=== PATIENT | female | born 1960 | race Caucasian/White ===

== ENCOUNTER → 2018-03-25 | Outpatient (CLI) | payer OTHER ==
[2018-03-25 13:12] LABS: HEMOGLOBIN A1C 9.8 % (4.5-5.6)
[2018-03-25 13:59] LABS: ALBUMIN 3.5 gm/dl (3.4-5.0); ALKALINE PHOSPHATASE 134 U/L (45-117); ALT/SGPT 46 U/L (12-78); AST/SGOT 53 U/L (15-37); BLOOD UREA NITROGEN 7 mg/dl (7-18); CALCIUM 9.1 mg/dl (8.5-10.1); CARBON DIOXIDE 29 mmol/L (21-32); CHOLESTEROL 140 mg/dl (0-200); CREATININE 0.59 mg/dl (0.60-1.20); GLUCOSE 174 mg/dl (70-99); SODIUM 137 mmol/L (136-145)
[2018-03-25 14:01] LABS: LDL CHOLESTEROL CALCULATED 67 mg/dl
== END | disposition home or self-care (01) ==
LOC: C.LABMFLN 09:07
PROVIDERS: ATTEND Family Medicine
DX: E11.40 Type 2 diabetes mellitus with diabetic neuropathy, unspecified (principal)

== ENCOUNTER 2019-07-22 21:31 | Inpatient (IN) ==
[2019-07-22] MEDS ORDERED: SODIUM CHLORIDE 0.9% 250 ML IV PRN (22:18)
[2019-07-22 22:30] LABS: Hematocrit (blood only) 16.5 % (37-47); Hemoglobin 4.3 g/dL (12.0-16.0); Mean Corpuscular Hgb Conc 26.1 g/dL (32-36); Mean Corpuscular Volume 65.2 fL (80-100); Platelet Count 324 K/uL (130-400); Red Blood Count 2.53 M/uL (4.2-5.4); White Blood Count 6.56 K/uL (4.8-10.8)
[2019-07-22 22:45] LABS: Albumin Level 3.6 gm/dl (3.4-5.0); BUN Creatinine Ratio 15.6 (10-20); Creatinine Clr Calc Pharmacy 101.8 ml/min; Est GFR (African American) 109.4; Est GFR (Non-African American) 94.4; Potassium 3.6 mmol/L (3.5-5.1)
[2019-07-22 22:46] LABS: Albumin Globulin Ratio 0.9 (0.9-2); Bilirubin,Total 1.1 mg/dl (0.2-1); Globulin 4.2 gm/dl (2.5-4.0); Total Protein 7.8 gm/dl (6.4-8.2)
[2019-07-22 22:51] LABS: Basophils # (auto) 0.03 K/uL (0-0.2); Basophils % (auto) 0.5 %; Eosinophils # (auto) 0.09 K/uL (0-0.5); Eosinophils % (auto) 1.4 %; Hypochromasia Present; Immature Granulocytes # (auto) 0.02 K/uL (0.00-0.02); Immature Granulocytes % (auto) 0.3 %; Lymphocytes # (auto) 1.23 K/uL (1.2-3.4); Lymphocytes % (auto) 18.8 %; Microcytosis Present; Monocytes # (auto) 0.52 K/uL (0.11-0.59); Monocytes % (auto) 7.9 %; Neutrophils # (auto) 4.67 K/uL (1.4-6.5); Neutrophils % (auto) 71.1 %; Ovalocytes 1+
--- NOTE | 2019-07-22 23:05 | Emergency Department Note ---
Entered by Danielle Hopkins acting as a scribe for Harjinder Baumann DO History of Present Illness General Chief complaint: Abnormal Labs/Diagnostic Testing Stated complaint: ANEMIC,ABNORMAL LABS Time Seen by Provider: 07/22/19 21:52 Source: patient History of Present Illness Onset (ago): hour(s) less than 1 Location: head (Abnormal lab work) Pain Consistency: + other (Episode) Maximum Pain Intensity: 0 Quality: + other (Abnormal lab work) Associated symptoms: + other (Fatigue, Irritably) Treatments prior to arrival: none The patient is a 59 year old female presenting to the Emergency Department complaining of an episode of abnormal lab work starting less than 1 hour ago. The patient reports that she had blood work done earlier today at [facility]. She explains that she was called and told that her blood work was abnormal and that she needed to come to the hospital. She states that her hemoglobin was 4.1. She adds that she has no past medical history of anemia. The patient reports that she has been feeling fatigued and irritable for the past month. She states that her blood pressure has been higher than normal. She explains that she has hemorrhoids that sometimes bleed. She notes that she recently had cataract surgery. 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 Medications Home Medications Medication Instructions Recorded Confirmed Type aspirin 81 mg PO QAM 05/07/19 07/22/19 History alprazolam 0.25 mg tablet 0.25 mg PO DAILY PRN #30 tab 07/22/19 07/22/19 Rx atorvastatin 10 mg tablet 10 mg PO QPM #90 tab 07/22/19 07/22/19 Rx cholecalciferol (vitamin D3) 1,000 unit PO DAILY 07/22/19 07/22/19 History [Vitamin D3] inulin 2 gram chewable tablet 2 g PO BID #180 tab 07/22/19 07/22/19 Rx metformin 1,000 mg tablet 1,000 mg PO BID #180 tab 07/22/19 07/22/19 Rx vitamin B complex tablet 1 tab PO QAM #90 tab 07/22/19 07/22/19 Rx zinc 50 mg tablet 50 mg PO QAM #90 tab 07/22/19 07/22/19 Rx Allergies Allergy/AdvReac Type Severity Reaction Status Date / Time cortisone Allergy Intermediate CORTISONE Verified 07/22/19 22:39 INJECTION ONLY - HIVES fentanyl Allergy Intermediate HIVES Verified 07/22/19 22:39 midazolam Allergy Intermediate HIVES Verified 07/22/19 22:40 propofol Allergy Intermediate HIVES Verified 07/22/19 22:40 prednisone Allergy Verified 07/22/19 09:49 Past Med/Surg History Medical History Diabetes mellitus, type 2 NIDDM Hyperlipidemia Surgical History History of anesthesia reaction ALLERGY TO PROPOFOL, VERSED, FENTANYL - HIVES, SLOW TO WAKE W/ COLONOSCOPIES ([facility]) (PT STATES BENADRYL GIVEN PRIOR TO [place]ITRECTOMY [place] [facility] [place] History of cataract surgery LEFT History of colonoscopy History of eye surgery RT RETINA REPAIR History of repair of rotator cuff RT History of toe surgery LT 2ND History of tonsillectomy and adenoidectomy History of tooth extraction History of vitrectomy JUNE 2018 [place] [facility] [place] Pt received Benadryl with propofol during the case without having hives Family History Aunt Family history of diabetes mellitus Grandfather (Maternal) Family history of diabetes mellitus Social History Preferred Language: Greek Communication Ability: Effective Card Player Required: No Beliefs That Will Affect Care: None Current Living Situation: Spouse Feels Safe at Home: Yes Smoking Status: Never smoker Second Hand Exposure: No ; Hx Alcohol Use: Yes Alcohol type: hard liquor Hx Substance Use: No Review of Systems See HPI for pertinent positives & negatives. and A total of 10 systems reviewed and were otherwise negative Physical Exam Vital Signs Vital Signs - 24 hr 07/22/19 21:34 07/22/19 21:58 Temperature 36.8 C Temperature Source Oral Sepsis Recent Fever Within 48 Hours No Sepsis New/Unexplained Change in Mental Status No Sepsis Action Taken by Nursing No Action Required Pulse Rate 124 H 102 H Pulse Rhythm Regular Respiratory Rate 16 Respiratory Effort / Characteristics Non-Labored Spontaneous Respiratory Depth Normal Blood Pressure 153/58 H Blood Pressure Mean 89 Pulse Oximetry 99 97 Oxygen Delivery Method Room Air Room Air CONSTITUTIONAL/VITAL SIGNS: Reviewed / noted above. GENERAL: Non-toxic in appearance. Pale. INTEGUMENTARY: Warm, dry, and [place]. HEAD: Normocephalic. EYES: without scleral icterus or trauma. ENT/OROPHARYNX: clear and moist. LYMPHADENOPATHY/NECK: Is supple without lymphadenopathy or meningismus. RESPIRATORY: Lungs clear and equal. CARDIOVASCULAR: Regular rate and rhythm. GI/ABDOMEN: Soft and nontender. No organomegaly or pulsatile mass. No rebound or guarding. Normal bowel sounds. RECTAL: Guaiac negative. EXTREMITIES: Warm and well perfused. BACK: No CVA tenderness. NEUROLOGICAL: Intact without focal deficits. PSYCHIATRIC: normal affect. MUSCULOSKELETAL: Normally developed with good muscle tone. Course 2158: The patient was evaluated in room B3B, and a complete history and physical examination were performed. 2217: I discussed the patient's case with Dr. Mauricio SANTIZO hospitalist. He will evaluate the patient for further management. 2246: I updated the patient at this time. Consultations Consultation #1: I discussed the patient's case with Dr. Mauricio SANTIZO hospitalist. He will evaluate the patient for further management. Time: 22:18 Medical Decision Making Differential Diagnosis Differential includes acute coronary syndrome, myocardial infarction, CVA, TIA, anemia, infection, pneumonia, UTI, pyelonephritis, poor nutrition, dehydration, electrolyte disturbance,hypoglycemia. Medical Records Attestation: I reviewed the patient's medical records. Home Medications Current Medication List: was personally reviewed by me Laboratory Data Attestation: I reviewed the patient's lab results. Result diagrams: 07/22/19 22:12 07/22/19 22:12 Lab Results 07/22/19 07/22/19 07/22/19 Range/Units 22:12 22:12 22:12 WBC 6.56 (4.8-10.8) K/uL RBC 2.53 L (4.2-5.4) M/uL Hgb 4.3 L* (12.0-16.0) g/dL Hct 16.5 L* (37-47) % MCV 65.2 L (80-100) fL MCH 17.0 L (25-34) pg MCHC 26.1 L (32-36) g/dL Plt Count 324 (130-400) K/uL Immature Gran % (Auto) 0.3 % Neut % (Auto) 71.1 % Lymph % (Auto) 18.8 % [place] % (Auto) 7.9 % Eos % (Auto) 1.4 % Baso % (Auto) 0.5 % Immature Gran # (Auto) 0.02 (0.00-0.02) K/uL Neut # (Auto) 4.67 (1.4-6.5) K/uL Lymph # (Auto) 1.23 (1.2-3.4) K/uL [place] # (Auto) 0.52 (0.11-0.59) K/uL Eos # (Auto) 0.09 (0-0.5) K/uL Baso # (Auto) 0.03 (0-0.2) K/uL Hypochromasia Present Microcytosis Present Ovalocytes 1+ PT Cancelled INR Cancelled APTT Cancelled PTT Ratio Cancelled Sodium 138 (136-145) mmol/L Potassium 3.6 (3.5-5.1) mmol/L Chloride 103 (98-107) mmol/L Carbon Dioxide 28 (21-32) mmol/L Anion Gap 7.0 (3-11) BUN 11 (7-18) mg/dl Creatinine 0.68 (0.6-1.2) mg/dl Est Cr Clr Drug Dosing 101.8 ml/min Est GFR ( Amer) 109.4 Est GFR (Non-Af Amer) 94.4 BUN/Creatinine Ratio 15.6 (10-20) Glucose 197 H (70-99) mg/dl Calcium 9.0 (8.5-10.1) mg/dl Total Bilirubin 1.1 H (0.2-1) mg/dl AST 21 (15-37) U/L ALT 25 (12-78) U/L Alkaline Phosphatase 85 (45-117) U/L Total Protein 7.8 (6.4-8.2) gm/dl Albumin 3.6 (3.4-5.0) gm/dl Globulin 4.2 H (2.5-4.0) gm/dl Albumin/Globulin Ratio 0.9 (0.9-2) Crossmatch 07/22/19 Range/Units 22:12 WBC (4.8-10.8) K/uL RBC (4.2-5.4) M/uL Hgb (12.0-16.0) g/dL Hct (37-47) % MCV (80-100) fL MCH (25-34) pg MCHC (32-36) g/dL Plt Count (130-400) K/uL Immature Gran % (Auto) % Neut % (Auto) % Lymph % (Auto) % [place] % (Auto) % Eos % (Auto) % Baso % (Auto) % Immature Gran # (Auto) (0.00-0.02) K/uL Neut # (Auto) (1.4-6.5) K/uL Lymph # (Auto) (1.2-3.4) K/uL [place] # (Auto) (0.11-0.59) K/uL Eos # (Auto) (0-0.5) K/uL Baso # (Auto) (0-0.2) K/uL Hypochromasia Microcytosis Ovalocytes PT INR APTT PTT Ratio Sodium (136-145) mmol/L Potassium (3.5-5.1) mmol/L Chloride (98-107) mmol/L Carbon Dioxide (21-32) mmol/L Anion Gap (3-11) BUN (7-18) mg/dl Creatinine (0.6-1.2) mg/dl Est Cr Clr Drug Dosing ml/min Est GFR ( Amer) Est GFR (Non-Af Amer) BUN/Creatinine Ratio (10-20) Glucose (70-99) mg/dl Calcium (8.5-10.1) mg/dl Total Bilirubin (0.2-1) mg/dl AST (15-37) U/L ALT (12-78) U/L Alkaline Phosphatase (45-117) U/L Total Protein (6.4-8.2) gm/dl Albumin (3.4-5.0) gm/dl Globulin (2.5-4.0) gm/dl Albumin/Globulin Ratio (0.9-2) Crossmatch See Detail ECG Data Attestation: I personally reviewed and interpreted this ECG as follows: Indication: other (Abnormal lab work, Fatigue) Rate (beats per minute): 114 Rhythm: sinus tachycardia Findings: no ST elevation and no ectopy Blood Pressure Blood Pressure Findings: Elevated blood pressure Blood Pressure Disposition: further management by hospitalist ABIOLA Day This is a 59-year-old female who presents to the ED with a chief complaint of extreme fatigue. The patient was seen at the PCPs office today and had outpatient blood work that revealed a hemoglobin of 4.6. Her metabolic panel was unremarkable and her troponin was negative. A CT angiogram of the chest did not show PE but did show a thyroid nodule as well as splenomegaly. The patient was typed and crossed. She will transfuse 1 unit of packed RBCs here. I spoke with the hospitalist, who will see the patient for further inpatient evaluation and care. Impression & Plan Anemia Critical Care Time Critical Care Time: Yes Total Critical Care Time: 32 I have personally spent 32 minutes of critical care time in the direct management of this patient. This includes bedside care, interpretation of diagnostic studies, and testing, discussion with consultants, patient, and family members, and other required patient management activities. This 32 minut es is in excess of all separately billable procedures. Discharge Plan Visit Data Chief Complaint: Abnormal Labs/Diagnostic Testing Stated Complaint: ANEMIC,ABNORMAL LABS ED Provider: Harjinder Baumann Discharge Problem: Anemia Patient Disposition: Being Evaluated by Hospitalist Forms Stand Alone Forms: My [facility] Prescriptions Prescriptions: No Action atorvastatin 10 mg tablet 10 mg PO QPM Qty: 90 RF: 3 Fiber Gummies 2 gram tablet,chewable 2 g PO BID Qty: 180 RF: 3 metformin 1,000 mg tablet 1,000 mg PO BID Qty: 180 RF: 3 vitamin B complex tablet 1 tab PO QAM Qty: 90 RF: 3 zinc 50 mg tablet 50 mg PO QAM Qty: 90 RF: 3 alprazolam 0.25 mg tablet 0.25 mg PO DAILY PRN (Reason: anxiety) Qty: 30 RF: 0 aspirin 81 mg Tablet,Delayed Release (Dr/Ec) 81 mg PO QAM RF: 0 cholecalciferol (vitamin D3) [Vitamin D3] 1,000 unit (25 mcg) Tablet 1,000 unit PO DAILY RF: 0 Referrals Referrals: Tirso Browning MD [Primary Care Provider] - Discharge Problem: Anemia Qualifiers: Anemia type: unspecified type Qualified Code(s): D64.9 - Anemia, unspecified The scribe's documentation has been prepared under my direction and personally reviewed by me in its entirety. I confirm that the note above accurately reflects all work, treatment, procedures, and medical decision making performed by me.
[2019-07-22 23:18] LABS: INR 1.1 (0.9-1.1); Partial Thromboplastin Ratio 0.7; Partial Thromboplastin Time < 20.0 Seconds (21.0-31.0); Prothrombin Time 11.2 Seconds (9.0-12.0)
--- NOTE | 2019-07-22 23:49 | History & Physical Report ---
Date of Service July 22, 2019 Assessment & Plan (1) Symptomatic anemia: Hemoglobin 4.6 at the outpatient lab, with repeat in the ED tonight 4.3. Significantly hypochromic microcytic indices. Peripheral smear. Hemoccult test stools. H&H every 6 hours, starting 1 hour after the third unit of PRBC's to be transfused tonight. Famotidine 20 mg IV every 12 hours. Patient does report significant bleeding from what she felt was hemorrhoids. NPO Consult gastroenterology. Consult hematology. Present on Admission?: Yes (2) Splenomegaly: Splenomegaly noted on CT of chest. Order CT of abdomen and pelvis to further assess. Consult hematology regarding anemia and splenomegaly. Present on Admission?: Yes (3) Right thyroid nodule: Noted on CT of chest. Order thyroid ultrasound. TSH, free T4 and free T3. Present on Admission?: Yes (4) Type 2 diabetes mellitus: Hold metformin while n.p.o. Placed on Accu-Cheks before meals and at bedtime with NovoLog coverage per scale. Present on Admission?: Yes (5) Hyperlipidemia: Hold atorvastatin while patient is n.p.o. Present on Admission?: Yes (6) Anxiety: Change alprazolam 0.25 mg p.o. daily PRN to Lorazepam 0.5 mg IV every 6 hours as needed Present on Admission?: Yes History of Present Illness Chief Complaint: The patient is referred to the emergency department by her PCP due to abnormal lab work performed in the outpatient setting earlier in the day today. Primary Care Provider: Tirso Browning MD The patient is a 59-year-old female with a past medical history including hyperlipidemia, anxiety, diabetes mellitus who had gone to her PCP due to concerns regarding worsening fatigue and progressive shortness of breath with less and less activity. Laboratory work that was ordered, returned results later in the day, with a low hemoglobin of 4.6, she was told to come to the emergency department for assessment. The patient reports that she periodically has issues with hemorrhoidal bleeding, and sometimes may persist for up to 2 weeks at a time. She denies any abdominal, pelvic or rectal pain. She does take aspirin 81 mg daily. Allergies Allergy/AdvReac Type Severity Reaction Status Date / Time cortisone Allergy Intermediate CORTISONE Verified 07/22/19 22:39 INJECTION ONLY - HIVES fentanyl Allergy Intermediate HIVES Verified 07/22/19 22:39 midazolam Allergy Intermediate HIVES Verified 07/22/19 22:40 propofol Allergy Intermediate HIVES Verified 07/22/19 22:40 prednisone Allergy Verified 07/22/19 09:49 Home Medications Home Medications Medication Instructions Recorded Confirmed Type aspirin 81 mg PO QAM 05/07/19 07/22/19 History alprazolam 0.25 mg tablet 0.25 mg PO DAILY PRN #30 tab 07/22/19 07/22/19 Rx atorvastatin 10 mg tablet 10 mg PO QPM #90 tab 07/22/19 07/22/19 Rx cholecalciferol (vitamin D3) 1,000 unit PO DAILY 07/22/19 07/22/19 History [Vitamin D3] inulin 2 gram chewable tablet 2 g PO BID #180 tab 07/22/19 07/22/19 Rx metformin 1,000 mg tablet 1,000 mg PO BID #180 tab 07/22/19 07/22/19 Rx vitamin B complex tablet 1 tab PO QAM #90 tab 07/22/19 07/22/19 Rx zinc 50 mg tablet 50 mg PO QAM #90 tab 07/22/19 07/22/19 Rx Past Med/Surg History Medical History Diabetes mellitus, type 2 NIDDM Hyperlipidemia Surgical History History of anesthesia reaction ALLERGY TO PROPOFOL, VERSED, FENTANYL - HIVES, SLOW TO [place]KE W/ COLONOSCOPIES ([facility]) (PT STATES [place]YL G[place] [facility] [place] History of cataract surgery LEFT History of colonoscopy History of eye surgery RT RETINA REPAIR History of repair of rotator cuff RT History of toe surgery LT 2ND History of tonsillectomy and adenoidectomy History of tooth extraction [place] [facility] [place] Pt received Benadryl with propofol during the case without having hives Family History Aunt Family history of diabetes mellitus Grandfather (Maternal) Family history of diabetes mellitus Social History Preferred Language: Omani Communication Ability: Effective Neurodiagnostic Tech Required: No Beliefs That Will Affect Care: None Current Living Situation: Spouse and Family Other Information That Helps Us Care for You: No Feels Safe at Home: Yes Safety Concerns: Feels Safe At This Time Smoking Status: Former smoker Tobacco Type: cigarettes ; Cigarettes Per Day: 20 ; Smoking End Date: ; Second Hand Exposure: No ; Hx Alcohol Use: Yes Alcohol type: hard liquor Hx Substance Use: No Review of Systems Review of Systems: The patient denies chest pain, cough, lower extremity swelling, sore throat, fevers, chills, sweats, weight change, nausea, vomiting, diarrhea, constipation, abdominal pain, pelvic pain, blood in urine or stool, dysuria, urinary frequency or urgency, headache, memory loss, loss of consciousness, rash, abnormal bruising or bleeding, imbalance, focal or generalized weakness, numbness or tingling in arms or legs, generalized arthralgias or myalgias, back or neck pain, or night sweats. The review of systems is otherwise negative other than for that already noted above, and at least 10 systems have been reviewed. Physical Exam Physical Exam: The patient is awake, alert and oriented 3, well developed and well nourished, normocephalic and atraumatic, lying in bed and in no acute distress. HEENT--PERRL, EOMI, mucous membranes and oropharynx dry. Neck--supple. No JVD. No bruits. Thyroid normal, trachea midline, no adenopathy. Heart--normal S1 and S2. Systolic murmurs. No rubs or gallops. Lungs--clear bilaterally, no respiratory distress, no accessory muscle use. Abdomen--normal bowel sounds and soft. Nontender. Nondistended. Extremities--no cyanosis or clubbing. No edema. There are good distal pulses b/l. Dermatologic--normal skin turgor, normal color, no abnormal lymph nodes, no rash. Neurologic--cranial nerves II through XII grossly intact. Rheumatologic--normal range of motion. Psychiatric--normal affect. Results & Data Vital Signs (Past 12 Hours) Vital Signs Temp Pulse Pulse Resp BP BP Pulse Ox 07/22/19 23:45 99.0 F 109 H 16 129/59 L 98 07/22/19 23:40 99.0 F 113 H 16 129/58 L 98 07/22/19 23:25 99.3 F 122 H 16 165/62 H 97 07/22/19 23:06 112 H 19 142/62 H 94 07/22/19 21:58 102 H 97 07/22/19 21:34 98.2 F 124 H 16 153/58 H 99 Laboratory Results Laboratory Results WBC 6.56 K/uL (4.8-10.8) 07/22/19 22:12 RBC 2.53 M/uL (4.2-5.4) L 07/22/19 22:12 Hgb 4.3 g/dL (12.0-16.0) L* 07/22/19 22:12 Hct 16.5 % (37-47) L* 07/22/19 22:12 MCV 65.2 fL (80-100) L 07/22/19 22:12 MCH 17.0 pg (25-34) L 07/22/19 22:12 MCHC 26.1 g/dL (32-36) L 07/22/19 22:12 Plt Count 324 K/uL (130-400) 07/22/19 22:12 Immature Gran % (Auto) 0.3 % 07/22/19 22:12 Neut % (Auto) 71.1 % 07/22/19 22:12 Lymph % (Auto) 18.8 % 07/22/19 22:12 [place] % (Auto) 7.9 % 07/22/19 22:12 Eos % (Auto) 1.4 % 07/22/19 22:12 Baso % (Auto) 0.5 % 07/22/19 22:12 Immature Gran # (Auto) 0.02 K/uL (0.00-0.02) 07/22/19 22:12 Neut # (Auto) 4.67 K/uL (1.4-6.5) 07/22/19 22:12 Lymph # (Auto) 1.23 K/uL (1.2-3.4) 07/22/19 22:12 [place] # (Auto) 0.52 K/uL (0.11-0.59) 07/22/19 22:12 Eos # (Auto) 0.09 K/uL (0-0.5) 07/22/19 22:12 Baso # (Auto) 0.03 K/uL (0-0.2) 07/22/19 22:12 Hypochromasia Present 07/22/19 22:12 Microcytosis Present 07/22/19 22:12 Ovalocytes 1+ 07/22/19 22:12 PT 11.2 Seconds (9.0-12.0) 07/22/19 22:57 INR 1.1 (0.9-1.1) 07/22/19 22:57 APTT < 20.0 Seconds (21.0-31.0) L 07/22/19 22:57 PTT Ratio 0.7 07/22/19 22:57 Sodium 138 mmol/L (136-145) 07/22/19 22:12 Potassium 3.6 mmol/L (3.5-5.1) 07/22/19 22:12 Chloride 103 mmol/L (98-107) 07/22/19 22:12 Carbon Dioxide 28 mmol/L (21-32) 07/22/19 22:12 Anion Gap 7.0 (3-11) 07/22/19 22:12 BUN 11 mg/dl (7-18) 07/22/19 22:12 Creatinine 0.68 mg/dl (0.6-1.2) 07/22/19 22:12 Est Cr Clr Drug Dosing 101.8 ml/min 07/22/19 22:12 Est GFR ( Amer) 109.4 07/22/19 22:12 Est GFR (Non-Af Amer) 94.4 07/22/19 22:12 BUN/Creatinine Ratio 15.6 (10-20) 07/22/19 22:12 Glucose 197 mg/dl (70-99) H 07/22/19 22:12 POC Glucose 201 (70-99) H 07/23/19 00:45 Calcium 9.0 mg/dl (8.5-10.1) 07/22/19 22:12 Total Bilirubin 1.1 mg/dl (0.2-1) H 07/22/19 22:12 AST 21 U/L (15-37) 07/22/19 22:12 ALT 25 U/L (12-78) 07/22/19 22:12 Alkaline Phosphatase 85 U/L (45-117) 07/22/19 22:12 Total Protein 7.8 gm/dl (6.4-8.2) 07/22/19 22:12 Albumin 3.6 gm/dl (3.4-5.0) 07/22/19 22:12 Globulin 4.2 gm/dl (2.5-4.0) H 07/22/19 22:12 Albumin/Globulin Ratio 0.9 (0.9-2) 07/22/19 22:12 Blood Type A Positive 07/22/19 22:12 Blood Type Recheck A Positive 07/22/19 11:32 Antibody Screen NEGATIVE 07/22/19 22:12 Crossmatch See Detail 07/22/19 22:12 Diagnostic Findings [place], [place] [phone] CT Scan Report Patient: ROLANDO COLLINS Date: 07/22/19 MR#: [id number]: [address] Acct ID:[id number]: Date: 1960[facility] Zip: [place] [address] Age: 59Location: CT Sex: F Room/Bed: Att Phy: Tirso Browning MDDiagnosis: OTHER FORMS OF DYSPNEA, ELEVATED D-DIMER Bárbara Phy: Tirso Browning MDService Date: 07/22/19 Fam Phy: Interpreting Phy: Carlos Eduardo Heart MD Admit Phy: Ordering Phy: Tirso Browning MD cc: ~ CT ANGIOGRAM OF THE CHEST CLINICAL HISTORY: Dyspnea and elevated D-dimer COMPARISON STUDY: 02/16/2010 TECHNIQUE: Following the IV administration of 106 mL of [id number]-320, CT angiogram of the thorax was performed from the thoracic inlet to the lung bases utilizing the pulmonary embolus protocol. Images are reviewed in the axial, sagittal, and coronal planes. IV contrast was administered without complication. MIP imaging was performed. A dose lowering technique was utilized adhering to the principles of ALARA. CT DOSE: 590.54 mGycm FINDINGS: There is a slowly enlarging 34 mm right lobe thyroid nodule with calcifications. This nodule measured 28 mm in 2009. There are mildly prominent right paratracheal lymph nodes which are not pathologically enlarged by size criteria. Subcarinal nodes are the upper limits of normal in size. There is no pathologic hilar or axillary lymphadenopathy There was no evidence of thoracic aortic dilatation. Pulmonary to opacification is slightly less than optimal. There are however no pulmonary artery filling defect identified to indicate acute pulmonary embolism. There is a trace right pleural effusion There is respiratory motion artifact. There are groundglass pulmonary opacities with a mosaic distribution. This suggests an element of air trapping. There are right basilar atelectatic changes. There is no lobar consolidation. The spleen appears enlarged but is only partially visualized IMPRESSION: 1. No evidence of acute pulmonary embolism 2. Mosaic attenuation of the lungs, likely secondary to air trapping 3. Slowly enlarging dominant 34 mm right lobe thyroid nodule 4. Splenomegaly Electronically signed by: Carlos Eduardo Heart M.D. 07/22/2019 4:23 PM Dictated: 07/22/19 1616 Transcribed: 07/22/19 1616 Code Status & VTE Plan Code Status Full code VTE Prophylaxis Plan VTE Prophylaxis will be ordered: Yes PG Care Time/CCT Total # of Minutes Spent Total Time Spent with Patient: Total time spent is greater than 50% in coordination of care (as documented) at patient's floor/unit and/or counseling patient:
[2019-07-23] MEDS ORDERED: SODIUM CHLORIDE 0.9% 250 ML IV PRN (00:55)
[2019-07-23] MEDS ORDERED: ONDANSETRON INJ 2 MG/ML 2 ML VIAL IV PRN (00:55)
[2019-07-23] MEDS ORDERED: ACETAMINOPHEN 1000 MG/100 ML IV IV PRN (00:55)
[2019-07-23] MEDS: FAMOTIDINE 20 MG in SYRINGE 3 ML IV SCH ×3 (01:16→21:30)
[2019-07-23] MEDS ORDERED: DEXTROSE 50% 50 ML SYRINGE IV PRN (01:23)
[2019-07-23] MEDS ORDERED: GLUCAGON FOR INJ 1 MG VIAL SQ PRN (01:23)
[2019-07-23] MEDS ORDERED: GLUCOSE 10 TABS/TUBE PO PRN (01:23)
[2019-07-23] MEDS ORDERED: GLUCOSE 40% GEL 15 GM TUBE PO PRN (01:23)
[2019-07-23] MEDS ORDERED: CARBOHYDRATES FOR HYPOGLYCEMIA PO PRN (01:23)
[2019-07-23] MEDS ORDERED: LORazepam 0.25 MG/0.5 ML VIAL IV PRN (04:18)
[2019-07-23] MEDS: INSULIN ASPART 100 UNITS/ML 3 ML PEN SC SCH ×4 (06:17→21:31)
--- NOTE | 2019-07-23 06:56 | Ultrasound Report ---
US thyroid CLINICAL HISTORY: Thyroid nodule abnormal CT scan COMPARISON STUDY: January 2010 FINDINGS: The right lobe measures 49 x 22 x 34 mm. There is 3.5 cm partially solid and cystic slightly hypoecho ic right lobe thyroid nodule which contains areas of calcification. If not previously biopsied, this nodule does meet biopsy criteria. The left lobe measures 41 x 10 x 12 mm. There are multiple left lung nodules measuring up to 6 mm in diameter. There is a 1 cm isthmus nodule. This demonstrates rim calcification. IMPRESSION: 1. Multinodular thyroid gland. 2. The dominant 3.5 cm right lobe thyroid nodule remains similar in size to the prior 2009 study. It has however developed areas of calcification. The nodule meets biopsy criteria [facility]. Electronically signed by: Carlos Eduardo Heart M.D. 07/23/2019 6:55 AM
--- NOTE | 2019-07-23 07:10 | CT Scan Report ---
CT OF THE ABDOMEN AND PELVIS WITHOUT CONTRAST CLINICAL HISTORY: Symptomatic anemia. COMPARISON STUDY: Right upper quadrant ultrasound April 15, 2014. TECHNIQUE: Axial images of the abdomen and pelvis were obtained without IV contrast. Images were revi ewed in the axial, sagittal, and coronal planes. Automated exposure control was utilized for the nora dy. A dose lowering technique was utilized adhering to the principles of ALARA. FINDINGS: Excreted contrast within the collecting systems, ureters and bladder is from recent contras t-enhanced chest CT. Mild cardiomegaly is noted. There is borderline splenomegaly. No hydronephrosis is present. Evaluation of the abdomen and pelvis is suboptimal on this unenhanced exam. Unenhanced im ages of the liver, adrenal glands and pancreas are normal. There is no biliary or pancreatic ductal d ilatation. No pneumatosis, free air or portal venous gas is present. The appendix is normal. There is colonic diverticulosis without evidence for acute diverticulitis. No ascites or lymphadenopathy is p resent. No retroperitoneal hematoma is noted. There is no hemoperitoneum. No suspicious osseous lesio ns are noted. Multilevel degenerative changes within the lumbar spine are present. IMPRESSION: 1. No acute process within the abdomen or pelvis on unenhanced exam. 2. Sigmoid diverticulosis without evidence for acute diverticulitis. Decreased sensitivity for detect ion mucosal lesions given CT technique. However, none identified. Electronically signed by: Nickolas Zapata M.D. 07/23/2019 7:09 AM
[2019-07-23 13:27] LABS: Hematocrit (blood only) 24.8 % (37-47); Hemoglobin 7.2 g/dL (12.0-16.0); Mean Corpuscular Hemoglobin 20.4 pg (25-34); Mean Corpuscular Volume 70.3 fL (80-100); Mean Platelet Volume 9.5 fL (7.4-10.4); Platelet Count 281 K/uL (130-400); RDW Coefficient of Variation 21.8 % (11.5-14.5); RDW Standard Deviation 56.4 fL (36.4-46.3); Red Blood Count 3.53 M/uL (4.2-5.4); White Blood Count 5.57 K/uL (4.8-10.8)
[2019-07-23 13:40] LABS: Albumin Globulin Ratio 0.8 (0.9-2); Albumin Level 3.7 gm/dl (3.4-5.0); BUN Creatinine Ratio 14.9 (10-20); Bilirubin,Total 1.8 mg/dl (0.2-1); Calcium 8.9 mg/dl (8.5-10.1); Creatinine Clr Calc Pharmacy 157.9 ml/min; Est GFR (African American) 122.7; Est GFR (Non-African American) 105.9; Globulin 4.8 gm/dl (2.5-4.0); Potassium 3.6 mmol/L (3.5-5.1); Total Protein 8.5 gm/dl (6.4-8.2)
[2019-07-23 13:49] LABS: Anisocytosis Present; Basophils # (auto) 0.02 K/uL (0-0.2); Basophils % (auto) 0.4 %; Eosinophils # (auto) 0.12 K/uL (0-0.5); Eosinophils % (auto) 2.2 %; Hypochromasia Present; Immature Granulocytes # (auto) 0.01 K/uL (0.00-0.02); Immature Granulocytes % (auto) 0.2 %; Lymphocytes # (auto) 1.27 K/uL (1.2-3.4); Lymphocytes % (auto) 22.8 %; Monocytes # (auto) 0.48 K/uL (0.11-0.59); Monocytes % (auto) 8.6 %; Neutrophils # (auto) 3.67 K/uL (1.4-6.5); Neutrophils % (auto) 65.8 %; Poikilocytosis Present; Polychromasia 1+
--- NOTE | 2019-07-23 14:14 | Hospitalist Progress Note ---
Date of Service July 23, 2019 Assessment & Plan (1) Symptomatic anemia: Hemoglobin 4.6 at the outpatient lab, with repeat in the ED tonight 4.3. Microcytic; likely iron deficiency. Patient does report significant bleeding from what she felt was hemorrhoids. - Peripheral smear showed hypochromasia. - Famotidine 20 mg IV every 12 hours. - GI consulted - Awaiting consult - Patient report she was seen by hematology - Plan for outpatient iron infusion, though no note yet. (2) Right thyroid nodule: Noted on CT of chest. Thyroid ultrasound showed stable 3.5 cm nodule. - TSH from 07/22/2019 was 0.010, FT4 was 1.15. - FT3 on 07/23 was 4.41. - Difficult to tell whether these values are being affected by her critical anemia or this may be contributing. Few present symptoms as far as I can tell. Will need repeat in 4 weeks and endocrinology follow up. (3) Type 2 diabetes mellitus: A1c was 8.0% in 03/2019. - Hold metformin while n.p.o. - Placed on Accu-Cheks before meals and at bedtime with NovoLog coverage per scale. (4) Hyperlipidemia: - Hold atorvastatin while patient is n.p.o. (5) Anxiety: - Change alprazolam 0.25 mg p.o. daily PRN to Lorazepam 0.5 mg IV every 6 hours as needed (6) DVT prophylaxis: SCDs given concern for bleeding Subjective Not feeling all that bad overall. Got her blood and overall feels improved. No melena or hematochezia. Review of Systems Review of Systems: All systems reviewed & are unremarkable except as noted in HPI & below Physical Exam Constitutional: WD/WN, vitals as above Eyes: EOM intact bilaterally; no conjunctival abnormality ENMT: external ear and nose normal, oropharynx normal Neck: trachea midline, no thyromegaly normal visual inspection Respiratory: normal respiratory effort, lungs clear to auscultation no re spiratory distress Cardiovascular: RRR, no murmur, no edema Gastrointestinal (Abdomen): Inspection/Auscultation: abdomen normal to inspection; abdomen not distended Musculoskeletal: no cyanosis or clubbing, extremities motor strength 5/5 Skin: no rashes, warm and dry Neurologic: moves all extremities and awake Psychiatric: Orientation: alert, oriented to person and cooperative Results & Data Vital Signs (Past 12 Hours) Vital Signs Temp Pulse Pulse Resp BP BP Pulse Ox 07/23/19 10:50 36.5 C 87 18 149/79 H 98 07/23/19 07:15 92 H 07/23/19 07:00 91 H 07/23/19 06:45 91 H 07/23/19 06:30 92 H 07/23/19 06:15 105 H 07/23/19 06:10 37.1 C 94 H 18 148/89 H 99 07/23/19 06:00 90 07/23/19 05:45 94 H 07/23/19 05:40 37.1 C 98 H 17 127/53 L 92 07/23/19 05:30 91 H 07/23/19 05:25 37.2 C 94 H 16 132/46 L 94 07/23/19 05:15 92 H 07/23/19 05:10 36.9 C 94 H 14 141/95 H 96 07/23/19 05:01 92 H 07/23/19 04:50 36.6 C 101 H 16 127/76 99 07/23/19 04:45 101 H 07/23/19 04:35 36.6 C 101 H 16 127/76 99 07/23/19 04:30 96 H 07/23/19 04:15 97 H 07/23/19 04:00 95 H 07/23/19 03:45 104 H 07/23/19 03:35 37.1 C 102 H 16 145/78 H 93 07/23/19 03:30 100 H 07/23/19 03:15 101 H 07/23/19 03:05 37.2 C 101 H 16 116/60 99 07/23/19 03:00 100 H 07/23/19 02:50 36.8 C 100 H 14 128/57 L 99 07/23/19 02:45 103 H 07/23/19 02:35 37.1 C 100 H 16 96/77 L 99 07/23/19 02:30 107 H 07/23/19 02:15 97 H PG Care Time/CCT Total # of Minutes Spent Total Time Spent with Patient: Total time spent is greater than 50% in coordination of care (as documented) at patient's floor/unit and/or counseling patient:
--- NOTE | 2019-07-23 15:06 | History & Physical Report ---
Date of Service July 23, 2019 History of Present Illness Chief Complaint: anemia Primary Care Provider: Tirso Browning MD for EGD Allergies Allergy/AdvReac Type Severity Reaction Status Date / Time cortisone Allergy Intermediate CORTISONE Verified 07/22/19 22:39 INJECTION ONLY - HIVES fentanyl Allergy Intermediate HIVES Verified 07/22/19 22:39 midazolam Allergy Intermediate HIVES Verified 07/22/19 22:40 propofol Allergy Intermediate HIVES Verified 07/22/19 22:40 prednisone Allergy Verified 07/22/19 09:49 Home Medications Home Medications Medication Instructions Recorded Confirmed Type aspirin 81 mg PO QAM 05/07/19 07/22/19 History alprazolam 0.25 mg tablet 0.25 mg PO DAILY PRN #30 tab 07/22/19 07/22/19 Rx atorvastatin 10 mg tablet 10 mg PO QPM #90 tab 07/22/19 07/22/19 Rx cholecalciferol (vitamin D3) 1,000 unit PO DAILY 07/22/19 07/22/19 History [Vitamin D3] inulin 2 gram chewable tablet 2 g PO BID #180 tab 07/22/19 07/22/19 Rx metformin 1,000 mg tablet 1,000 mg PO BID #180 tab 07/22/19 07/22/19 Rx vitamin B complex tablet 1 tab PO QAM #90 tab 07/22/19 07/22/19 Rx zinc 50 mg tablet 50 mg PO QAM #90 tab 07/22/19 07/22/19 Rx Past Med/Surg History Medical History Diabetes mellitus, type 2 NIDDM Hyperlipidemia Surgical History History of anesthesia reaction ALLERGY TO PROPOFOL, VERSED, FENTANYL - HIVES, SLOW TO WAKE W/ COLONOSCOPIES ([facility]) (PT STATES BENADRYL GIV[place] PRIOR [place] [facility] [place] History of cataract surgery LEFT History of colonoscopy History of eye surgery RT RETINA REPAIR History of repair of rotator cuff RT History of toe surgery LT 2ND History of tonsillectomy and adenoidectomy History of tooth extraction [place] of [place] [facility] [place] Pt received Benadryl with propofol during the case without having hives Family History Aunt Family history of diabetes mellitus Grandfather (Maternal) Family history of diabetes mellitus Social History Preferred Language: Setswana Communication Ability: Effective Corsetier Required: No Beliefs That Will Affect Care: None Current Living Situation: Spouse and Family Feels Safe at Home: Yes Smoking Status: Former smoker Tobacco Type: cigarettes ; Cigarettes Per Day: 20 ; Second Hand Exposure: No ; Hx Alcohol Use: Yes Alcohol type: hard liquor Hx Substance Use: No Physical Exam Constitutional: + obese Respiratory: normal respiratory effort Cardiovascular: Rate/Rhythm: regular rate and regular rhythm Gastrointestinal (Abdomen): Percussion/Palpation: abdomen soft Results & Data Vital Signs (Past 12 Hours) Vital Signs Temp Pulse Pulse Resp BP BP Pulse Ox 07/23/19 10:50 36.5 C 87 18 149/79 H 98 07/23/19 07:15 92 H 07/23/19 07:00 91 H 07/23/19 06:45 91 H 07/23/19 06:30 92 H 07/23/19 06:15 105 H 07/23/19 06:10 37.1 C 94 H 18 148/89 H 99 07/23/19 06:00 90 07/23/19 05:45 94 H 07/23/19 05:40 37.1 C 98 H 17 127/53 L 92 07/23/19 05:30 91 H 07/23/19 05:25 37.2 C 94 H 16 132/46 L 94 07/23/19 05:15 92 H 07/23/19 05:10 36.9 C 94 H 14 141/95 H 96 07/23/19 05:01 92 H 07/23/19 04:50 36.6 C 101 H 16 127/76 99 07/23/19 04:45 101 H 07/23/19 04:35 36.6 C 101 H 16 127/76 99 07/23/19 04:30 96 H 07/23/19 04:15 97 H 07/23/19 04:00 95 H 07/23/19 03:45 104 H 07/23/19 03:35 37.1 C 102 H 16 145/78 H 93 07/23/19 03:30 100 H 07/23/19 03:15 101 H Code Status & VTE Plan VTE Prophylaxis Plan VTE Prophylaxis will be ordered: Yes
--- NOTE | 2019-07-23 15:13 | Anesthesiology Consultation ---
Date of Service July 23, 2019 Assessment & Plan (1) Encounter for pre-operative examination: Chart Review Chart Review: Acceptable Risk for Surgery and Patient NOT seen in Pre Admission Testing Consults Requested none History Surgery Operation Date: 07/23/19 09:00 Proposed Procedures p Esophagogastroduodenoscopy Dr Reyna Orellana Height/Weight Height: 5 ft 10 in Weight: 100.4 kg Allergies Allergy/AdvReac Type Severity Reaction Status Date / Time cortisone Allergy Intermediate CORTISONE Verified 07/22/19 22:39 INJECTION ONLY - HIVES fentanyl Allergy Intermediate HIVES Verified 07/22/19 22:39 midazolam Allergy Intermediate HIVES Verified 07/22/19 22:40 propofol Allergy Intermediate HIVES Verified 07/22/19 22:40 prednisone Allergy Verified 07/22/19 09:49 Medications Home Medications Medication Instructions Recorded Confirmed Last Taken aspirin 81 mg PO QAM 05/07/19 07/22/19 06/09/19 alprazolam 0.25 mg tablet 0.25 mg PO DAILY PRN #30 tab 07/22/19 07/22/19 Unknown atorvastatin 10 mg tablet 10 mg PO QPM #90 tab 07/22/19 07/22/19 Unknown cholecalciferol (vitamin D3) 1,000 unit PO DAILY 07/22/19 07/22/19 Unknown [Vitamin D3] inulin 2 gram chewable tablet 2 g PO BID #180 tab 07/22/19 07/22/19 Unknown metformin 1,000 mg tablet 1,000 mg PO BID #180 tab 07/22/19 07/22/19 Unknown vitamin B complex tablet 1 tab PO QAM #90 tab 07/22/19 07/22/19 Unknown zinc 50 mg tablet 50 mg PO QAM #90 tab 07/22/19 07/22/19 Unknown Active Medications Generic Name Dose Route Start Last Admin Trade Name Freq PRN Reason Stop Dose Admin Famotidine 20 mg/ Syringe 5 mls @ 2.5 mls/min 07/23/19 02:00 07/23/19 08:06 IV 08/22/19 01:59 Not Given Q12 MALVIN Insulin Aspart 0 units 07/23/19 07:30 07/23/19 12:37 Novolog Flexpen SC 08/22/19 07:29 1 units ACHS MALVIN Administration Past Medical History Medical History Anemia Diabetes mellitus, type 2 NIDDM Hyperlipidemia Exercise / Class Metabolic Activity II 4-5 Yardwork/Stairs/Walk up hill Past Family History Family History Aunt Family history of diabetes mellitus Grandfather (Maternal) Family history of diabetes mellitus Past Surgical History Surgical History History of anesthesia reaction ALLERGY TO PROPOFOL, VERSED, FENTANYL - HIVES, SLOW TO WAKE W/ COLONOSCOPIES ([facility]) (PT [place]DRYL GIV[place] [facility] [place] History of cataract surgery LEFT History of colonoscopy History of eye surgery RT RETINA REPAIR History of repair of rotator cuff RT History of toe surgery LT 2ND History of tonsillectomy and adenoidectomy History of tooth extraction [place] [facility] [place] received Benadryl with propofol during the case without having hives Past Anesthesia History No Hx of Anesthesia Complications and No Family Hx of Anesthesia Complications History of PONV No Hx of PONV and No Hx of Motion Sickness Social History Smoking Status: Former smoker tobacco type: cigarettes Smoking cigarettes per day: 20 Smoking End Date: Hx Alcohol Use: Yes Alcohol type: hard liquor alcohol intake frequency: 0-2 drinks per day Alcohol Intake Frequency Comment: 2 shots 5 days/week Hx Substance Use: No substance use type: does not use Physical Exam Vital Signs Last Vital Signs Temp 36.5 C 07/23/19 10:50 Pulse 87 07/23/19 10:50 Resp 18 07/23/19 10:50 BP 149/79 H 07/23/19 10:50 Pulse Ox 98 07/23/19 10:50 Testing Laboratory Results 07/23/19 13:11 07/23/19 12:42 PT 11.2 Seconds (9.0-12.0) 07/22/19 22:57 INR 1.1 (0.9-1.1) 07/22/19 22:57 APTT < 20.0 Seconds (21.0-31.0) L 07/22/19 22:57 Blood Type A Positive 07/22/19 22:12 Antibody Screen NEGATIVE 07/22/19 22:12 07/23/19 07/23/19 11:41 05:44 POC Glucose 149 H 155 H
[2019-07-23] MEDS ORDERED: SODIUM CHLORIDE 0.9% 1000ML 1,000 ML IV SCH (15:15)
[2019-07-23] MEDS ORDERED: LIDOCAINE HCL 2% 2 ML VIAL/AMP(20MG/ML) INFIL ONE (15:31)
[2019-07-23] MEDS ORDERED: PROPOFOL IV EMULSION 10 MG/ML 20 ML VIAL IV ONE (15:31)
[2019-07-23] MEDS ORDERED: fentaNYL citrate 100 MCG/2 ML VIAL ONE (15:31)
[2019-07-23] MEDS ORDERED: DiphenhydrAMINE HCL 50 MG/ML VIAL ONE (15:31)
--- NOTE | 2019-07-23 15:51 | Oncology Consultation ---
Date of Consultation July 23, 2019 Assessment & Plan (1) Symptomatic anemia: Ms. You was admitted with a severe microcytic anemia. We will need to check iron indices, but that picture is most suggestive of iron deficiency from chronic GI losses. In particular, the insidious onset and relative modesty of her symptoms, given the severity of her anemia, suggests a chronic process. GI have been consulted and she is scheduled for an endoscopic workup today. She has had long-standing daily hemorrhoidal bleeding and that sometimes is enough to make patients iron deficient. Her CT revealed no evidence of abdominal masses or other findings suggestive of a mass or hematoma. We will follow up on the results of her endoscopies and her iron studies. If she is truly iron deficient, we can treat her with IV iron as an outpatient. Her total bilirubin has bumped today, from normal to 1.8. This is sometimes seen after transfusion, particularly when the blood that is given is a little older. These transient elevations should resolve in 24 hours, so we should check another level tomorrow. She had no signs or symptoms of an acute hemolytic transfusion reaction and delayed hemolytic transfusion reactions don't generally happen within 24 hours. If her bilirubin does not fall, we should sent off a transfusion reaction workup. Present on Admission?: Yes History of Present Illness Reason for Consultation: Severe microcytic anemia Attending Physician: Alon Castro MD History of Present Illness Ms. You is a generally healthy 59 year old woman with a history of type 2 diabetes. She saw her PCP yesterday complaining of increasing fatigue and dyspnea on exertion. He did a workup including a CBC that revealed a hemoglobin of 4.6 with an MCV of 67. She was directed to the ER, where her hemoglobin remained low at 4.3. She's received 3 units of PRBCs since admission and seen an appropriate response, with her hemoglobin now 7.2. She has a long-standing history of hemorrhoidal bleeding. She will often have multiple bowel movements in the morning and after straining for a while, will start to see red blood on her toilet tissue and her stool. This has been happening "for years" by her estimation. She denies any melena, hematemesis, epistaxis, or bleeding else where. She went through menopause 10 years ago. She never had heavy periods and has no children. She has never had abdominal surgery. She denies any known history of IBD, celiac disease, or other absorptive disorders. She is up to date on screening colonoscopies. She denies any fevers, sweats, or infectious symptoms. Allergies Allergy/AdvReac Type Severity Reaction Status Date / Time cortisone Allergy Intermediate CORTISONE Verified 07/22/19 22:39 INJECTION ONLY - HIVES fentanyl Allergy Intermediate HIVES Verified 07/22/19 22:39 midazolam Allergy Intermediate HIVES Verified 07/22/19 22:40 propofol Allergy Intermediate HIVES Verified 07/22/19 22:40 prednisone Allergy Verified 07/22/19 09:49 Home Medications Home Medications Medication Instructions Recorded Confirmed Type aspirin 81 mg PO QAM 05/07/19 07/22/19 History alprazolam 0.25 mg tablet 0.25 mg PO DAILY PRN #30 tab 07/22/19 07/22/19 Rx atorvastatin 10 mg tablet 10 mg PO QPM #90 tab 07/22/19 07/22/19 Rx cholecalciferol (vitamin D3) 1,000 unit PO DAILY 07/22/19 07/22/19 History [Vitamin D3] inulin 2 gram chewable tablet 2 g PO BID #180 tab 07/22/19 07/22/19 Rx metformin 1,000 mg tablet 1,000 mg PO BID #180 tab 07/22/19 07/22/19 Rx vitamin B complex tablet 1 tab PO QAM #90 tab 07/22/19 07/22/19 Rx zinc 50 mg tablet 50 mg PO QAM #90 tab 07/22/19 07/22/19 Rx Patient History Medical History Anemia Diabetes mellitus, type 2 NIDDM Hyperlipidemia Surgical History History of anesthesia reaction ALLERGY TO PROPOFOL, VERSED, FENTANYL - HIVES, SLOW TO WAKE W/ COLONOSCOPIES ([facility]) (PT STATES BENADRYL GIVEN PRIOR TO VITRECTOMY 06/2018 [facility] [place]) History of cataract surgery LEFT History of colonoscopy History of eye surgery RT RETINA REPAIR History of repair of rotator cuff RT History of toe surgery LT 2ND History of tonsillectomy and adenoidectomy History of tooth extraction History of vitrectomy JUNE 2018 - [facility] [place] Pt received Benadryl with propofol during the case without having hives Family History Aunt Family history of diabetes mellitus Grandfather (Maternal) Family history of diabetes mellitus Social History Preferred Language: Azerbaijani Communication Ability: 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 Beliefs That Will Affect Care: None Current Living Situation: Spouse and Family Feels Safe at Home: Yes Smoking Status: Former smoker Tobacco Type: cigarettes ; Cigarettes Per Day: 20 ; Second Hand Exposure: No ; Hx Alcohol Use: Yes Alcohol type: hard liquor Hx Substance Use: No Review of Systems Constitutional: + fatigue; no fever and no weight loss Eyes: no worsening vision Ear, Nose, Mouth, Throat: no epistaxis and no bleeding gums Respiratory: + dyspnea on exertion; no cough and no hemoptysis Cardiovascular: no chest pain, no palpitations and no edema Gastrointestinal: as per Subjective / HPI Genitourinary: no dysuria, no hematuria and no abnormal vaginal bleeding Integumentary: no rash and no change in skin color Neurologic: no dizziness and no headache(s) Hematologic / Lymphatic: no easy bleeding, no easy bruising and no night sweats Physical Exam Constitutional: well developed, well nourished and comfortable; no acute distress Eyes: + anicteric sclerae and EOM intact bilaterally ENMT: external ear and nose normal, oropharynx normal Respiratory: normal respiratory effort, lungs clear to auscultation Cardiovascular: RRR, no murmur, no edema Gastrointestinal (Abdomen): Inspection/Auscultation: normal bowel sounds; abdomen not distended Percussion/Palpation: abdomen soft; abdomen nontender Skin: no rashes, warm and dry Psychiatric: A+Ox3, euthymic affect Results & Data Vital Signs (Past 12 Hours) Vital Signs Temp Pulse Pulse Resp BP BP BP 07/23/19 15:08 36.7 C 95 H 16 162/92 H 07/23/19 10:50 36.5 C 87 18 149/79 H 07/23/19 07:17 36.7 C 95 H 18 132/72 07/23/19 07:15 92 H 07/23/19 07:00 91 H 07/23/19 06:45 91 H 07/23/19 06:30 92 H 07/23/19 06:15 105 H 07/23/19 06:10 37.1 C 94 H 18 148/89 H 07/23/19 06:00 90 07/23/19 05:45 94 H 07/23/19 05:40 37.1 C 98 H 17 127/53 L 07/23/19 05:30 91 H 07/23/19 05:25 37.2 C 94 H 16 132/46 L 07/23/19 05:15 92 H 07/23/19 05:10 36.9 C 94 H 14 141/95 H 07/23/19 05:01 92 H 07/23/19 04:50 36.6 C 101 H 16 127/76 07/23/19 04:45 101 H 07/23/19 04:35 36.6 C 101 H 16 127/76 07/23/19 04:30 96 H 07/23/19 04:15 97 H 07/23/19 04:00 95 H Pulse Ox 07/23/19 15:08 96 07/23/19 10:50 98 07/23/19 07:17 95 07/23/19 07:15 07/23/19 07:00 07/23/19 06:45 07/23/19 06:30 07/23/19 06:15 07/23/19 06:10 99 07/23/19 06:00 07/23/19 05:45 07/23/19 05:40 92 07/23/19 05:30 07/23/19 05:25 94 07/23/19 05:15 07/23/19 05:10 96 07/23/19 05:01 07/23/19 04:50 99 07/23/19 04:45 07/23/19 04:35 99 07/23/19 04:30 07/23/19 04:15 07/23/19 04:00 Laboratory Results Laboratory Tests 07/22/19 07/22/19 07/22/19 11:32 11:32 11:32 WBC Hgb 4.6 L* MCV 67.8 L Plt Count Creatinine 0.55 L Total Bilirubin 1.0 TSH 0.010 L 07/22/19 07/23/19 22:12 13:11 WBC 6.56 Hgb 4.3 L* 7.2 L MCV 65.2 L Plt Count 324 Creatinine Total Bilirubin TSH Diagnostic Findings CT CAP, 07/22/19: Chest IMPRESSION: 1. No evidence of acute pulmonary embolism 2. Mosaic attenuation of the lungs, likely secondary to air trapping 3. Slowly enlarging dominant 34 mm right lobe thyroid nodule 4. Splenomegaly A/P IMPRESSION: 1. No acute process within the abdomen or pelvis on unenhanced exam. 2. Sigmoid diverticulosis without evidence for acute diverticulitis. Decreased sensitivity for detection mucosal lesions given CT technique. However, none identified.
--- NOTE | 2019-07-23 15:54 | GI REPORT ---
Patient Name: Zee You Procedure Date: 07/23/2019 3:28 PM Date of : 1960 Admit Type: Inpatient Age: 59 Gender: Female Attending MD: Ramsey Orellana MD Procedure: Upper GI endoscopy Providers: Ramsey Orellana MD Referring MD: Lobito Martínez Indications: Iron deficiency anemia Medicines: Fentanyl 100 micrograms IV, Propofol total dose 100 mg IV, Benadryl 25 mg IV Complications: No immediate complications. Estimated Blood Loss: Estimated blood loss: none. Procedure: Pre-Anesthesia Assessment: - Prior to the procedure, a History and Physical was performed, and patient medications, allergies and sensitivities were reviewed. The patient's tolerance of previous anesthesia was reviewed. - The risks and benefits of the procedure and the sedation options and risks were discussed with the patient. All questions were answered and informed consent was obtained. After obtaining informed consent, the endoscope was passed under direct vision. Throughout the procedure, the patient's blood pressure, pulse, and oxygen saturations were monitored continuously. The Scope was introduced through the mouth, and advanced to the second part of duodenum. The upper GI endoscopy was accomplished without difficulty. The patient tolerated the procedure well. Findings: The Z-line was regular and was found 44 cm from the incisors. The examined esophagus was normal. The entire examined stomach was normal. The examined duodenum was normal. Impression: - Z-line regular, 44 cm from the incisors. - Normal esophagus. - Normal stomach. - Normal examined duodenum. - No specimens collected. Recommendation: - [facility]. - Perform a colonoscopy tomorrow. Ramsey Orellana M.D. Ramsey Orellana MD 07/23/2019 3:53:55 PM This report has been signed electronically. Note Initiated On: 07/23/2019 3:28 PM Number of Addenda: 0 I attest to the content of the Intraoperative Record and orders documented therein, exceptions below {[id number]}
--- NOTE | 2019-07-23 16:09 | Anesthesiology Progress Note ---
Date of Service July 23, 2019 Anesthesia Post Procedure Vital Signs Vital Signs: Temp Pulse Pulse Resp BP BP BP 07/23/19 15:51 85 14 136/77 07/23/19 15:08 36.7 C 95 H 16 162/92 H 07/23/19 10:50 36.5 C 87 18 149/79 H 07/23/19 07:17 36.7 C 95 H 18 132/72 07/23/19 07:15 92 H 07/23/19 07:00 91 H 07/23/19 06:45 91 H 07/23/19 06:30 92 H 07/23/19 06:15 105 H 07/23/19 06:10 37.1 C 94 H 18 148/89 H 07/23/19 06:00 90 07/23/19 05:45 94 H 07/23/19 05:40 37.1 C 98 H 17 127/53 L 07/23/19 05:30 91 H 07/23/19 05:25 37.2 C 94 H 16 132/46 L 07/23/19 05:15 92 H 07/23/19 05:10 36.9 C 94 H 14 141/95 H 07/23/19 05:01 92 H 07/23/19 04:50 36.6 C 101 H 16 127/76 07/23/19 04:45 101 H 07/23/19 04:35 36.6 C 101 H 16 127/76 07/23/19 04:30 96 H 07/23/19 04:15 97 H 07/23/19 04:00 95 H 07/23/19 03:45 104 H 07/23/19 03:35 37.1 C 102 H 16 145/78 H 07/23/19 03:30 100 H 07/23/19 03:15 101 H 07/23/19 03:05 37.2 C 101 H 16 116/60 07/23/19 03:00 100 H 07/23/19 02:50 36.8 C 100 H 14 128/57 L 07/23/19 02:45 103 H 07/23/19 02:35 37.1 C 100 H 16 96/77 L 07/23/19 02:30 107 H 07/23/19 02:15 97 H 07/23/19 02:05 37.0 C 104 H 14 104/47 L 07/23/19 02:00 102 H 07/23/19 01:45 106 H 07/23/19 01:30 37.2 C 111 H 16 140/80 07/23/19 01:15 106 H 07/23/19 01:00 108 H 07/23/19 00:45 109 H 07/23/19 00:36 123 H 07/23/19 00:31 149/62 H 07/23/19 00:30 37.4 C 122 H 18 149/62 H 07/23/19 00:00 37.3 C 109 H 14 124/56 L 07/22/19 23:45 37.2 C 111 H 13 129/59 L 07/22/19 23:41 112 H 11 L 129/58 L 07/22/19 23:40 37.2 C 113 H 16 129/58 L 07/22/19 23:30 113 H 25 H 07/22/19 23:26 119 H 14 165/62 H 07/22/19 23:25 37.4 C 122 H 16 165/62 H 07/22/19 23:24 138 H 32 H 07/22/19 23:06 110 H 112 H 17 142/62 H 142/62 H 07/22/19 23:00 111 H 30 H 07/22/19 22:45 113 H 20 07/22/19 22:30 114 H 24 07/22/19 22:21 114 H 22 07/22/19 21:58 102 H 07/22/19 21:34 36.8 C 124 H 16 153/58 H Pulse Ox 07/23/19 15:51 96 07/23/19 15:08 96 07/23/19 10:50 98 07/23/19 07:17 95 07/23/19 07:15 07/23/19 07:00 07/23/19 06:45 07/23/19 06:30 07/23/19 06:15 07/23/19 06:10 99 07/23/19 06:00 07/23/19 05:45 07/23/19 05:40 92 07/23/19 05:30 07/23/19 05:25 94 07/23/19 05:15 07/23/19 05:10 96 07/23/19 05:01 07/23/19 04:50 99 07/23/19 04:45 07/23/19 04:35 99 07/23/19 04:30 07/23/19 04:15 07/23/19 04:00 07/23/19 03:45 07/23/19 03:35 93 07/23/19 03:30 07/23/19 03:15 07/23/19 03:05 99 07/23/19 03:00 07/23/19 02:50 99 07/23/19 02:45 07/23/19 02:35 99 07/23/19 02:30 07/23/19 02:15 07/23/19 02:05 96 07/23/19 02:00 07/23/19 01:45 07/23/19 01:30 97 07/23/19 01:15 07/23/19 01:00 07/23/19 00:45 07/23/19 00:36 07/23/19 00:31 07/23/19 00:30 97 07/23/19 00:00 99 07/22/19 23:45 99 07/22/19 23:41 98 07/22/19 23:40 98 07/22/19 23:30 97 07/22/19 23:26 95 07/22/19 23:25 97 07/22/19 23:24 07/22/19 23:06 94 07/22/19 23:00 07/22/19 22:45 07/22/19 22:30 07/22/19 22:21 07/22/19 21:58 97 07/22/19 21:34 99 Transfer of Care Handoff Completed per policy Notes Mental Status: alert / awake / arousable and participated in evaluation Patient Amnestic to Procedure: Yes Nausea / Vomiting: adequately controlled Pain: adequately controlled Airway Patency, RR, SpO2: stable & adequate BP & HR: stable & adequate Hydration State: stable & adequate Anesthetic Complications: no major complications apparent and Pt Satisfied with anesthetic care Notes: no hives noted
[2019-07-23] MEDS ORDERED: LAVAGE SOLUTION 4000ML PO SCH (16:30)
[2019-07-23 16:44] LABS: Ferritin 3.4 ng/ml (8-388)
--- NOTE | 2019-07-23 17:27 | Consultation Report ---
DATE OF CONSULTATION: 07/23/2019 REASON FOR EVALUATION: Severe anemia with microcytic indices. HISTORY OF PRESENT ILLNESS: The patient is a 59-year-old who presents with profound anemia, hemoglobin of 4.3 with microcytic indices. The patient reports no visible bleeding from her rectum. No hematemesis or hematuria. She was admitted to the hospital and placed on IV famotidine and given 3 units of blood to hemoglobin of over 7. Stool Hemoccult was negative. She just underwent an EGD which was totally normal. She is on for a colonoscopy tomorrow. PAST MEDICAL HISTORY: Remarkable for rotator cuff repair, eye surgery, tonsillectomy, adenoidectomy, vitrectomy, diabetes and hyperlipidemia. MEDICATIONS: Baby aspirin, alprazolam, atorvastatin, Colace, vitamin D, insulin, metformin, vitamin B complex and zinc. ALLERGIES: FENTANYL, CORTISONE, MIDAZOLAM, PROPOFOL AND PREDNISONE. FAMILY HISTORY: Positive for diabetes. SOCIAL HISTORY: The patient lives with her spouse. Former smoker, drinks alcohol. REVIEW OF SYSTEMS: Negative for 12 systems. PHYSICAL EXAMINATION: GENERAL: The patient appears in no acute distress. VITAL SIGNS: Normal. She is afebrile, pulse is 100. ABDOMEN: Soft. There are no masses or hepatosplenomegaly. There are no spider angiomata or palmar erythema. IMPRESSION AND PLAN: The patient has severe anemia with microcytic indices. We will get iron studies. Her EGD was negative. We will check a colonoscopy. If that is negative given her splenomegaly on CT scan, she may have some kind of hemolytic process. Dermatology has been consulted. Prep is written for colonoscopy on 07/24/2019. [facility]
[2019-07-24 06:30] LABS: Hematocrit (blood only) 23.2 % (37-47); Hemoglobin 6.7 g/dL (12.0-16.0); Mean Corpuscular Hemoglobin 20.6 pg (25-34); Mean Corpuscular Hgb Conc 28.9 g/dL (32-36); Mean Corpuscular Volume 71.4 fL (80-100); Mean Platelet Volume 9.6 fL (7.4-10.4); Platelet Count 247 K/uL (130-400); RDW Coefficient of Variation 21.9 % (11.5-14.5); RDW Standard Deviation 57.1 fL (36.4-46.3); Red Blood Count 3.25 M/uL (4.2-5.4); White Blood Count 4.68 K/uL (4.8-10.8)
[2019-07-24 06:56] LABS: Albumin Level 3.2 gm/dl (3.4-5.0); BUN Creatinine Ratio 14.2 (10-20); Calcium 8.5 mg/dl (8.5-10.1); Creatinine Clr Calc Pharmacy 184.1 ml/min; Est GFR (African American) 129.2; Est GFR (Non-African American) 111.5; Potassium 3.5 mmol/L (3.5-5.1)
[2019-07-24 06:59] LABS: Albumin Globulin Ratio 0.8 (0.9-2); Bilirubin,Total 1.7 mg/dl (0.2-1); Globulin 3.8 gm/dl (2.5-4.0)
[2019-07-24] MEDS ORDERED: LAVAGE SOLUTION 4000ML PO SCH (07:00)
[2019-07-24 07:16] LABS: Anisocytosis Present; Basophils # (auto) 0.02 K/uL (0-0.2); Basophils % (auto) 0.4 %; Eosinophils # (auto) 0.11 K/uL (0-0.5); Eosinophils % (auto) 2.4 %; Hypochromasia Present; Immature Granulocytes # (auto) 0.02 K/uL (0.00-0.02); Immature Granulocytes % (auto) 0.4 %; Lymphocytes # (auto) 0.91 K/uL (1.2-3.4); Lymphocytes % (auto) 19.4 %; Monocytes # (auto) 0.35 K/uL (0.11-0.59); Monocytes % (auto) 7.5 %; Neutrophils # (auto) 3.27 K/uL (1.4-6.5); Neutrophils % (auto) 69.9 %; Tear Drop Cells 1+
[2019-07-24] MEDS ORDERED: SODIUM CHLORIDE 0.9% 250 ML IV PRN (07:21)
--- NOTE | 2019-07-24 07:24 | Anesthesiology Progress Note ---
Date of Service July 24, 2019 Anesthesia Post Procedure Vital Signs Vital Signs: Temp Pulse Resp BP BP Pulse Ox 07/24/19 07:10 36.8 C 83 18 155/82 H 96 07/24/19 03:37 36.5 C 91 H 18 168/91 H 96 07/23/19 23:19 36.8 C 88 18 134/62 97 07/23/19 19:31 36.8 C 90 20 166/93 H 97 07/23/19 16:26 87 16 130/80 96 07/23/19 16:09 87 16 122/69 93 07/23/19 15:51 85 14 136/77 96 07/23/19 15:08 36.7 C 95 H 16 162/92 H 96 07/23/19 10:50 36.5 C 87 18 149/79 H 98 Notes Mental Status: alert / awake / arousable and participated in evaluation Nausea / Vomiting: adequately controlled Pain: adequately controlled Airway Patency, RR, SpO2: stable & adequate BP & HR: stable & adequate Hydration State: stable & adequate
[2019-07-24] MEDS: INSULIN ASPART 100 UNITS/ML 3 ML PEN SC SCH ×4 (10:15→20:51)
[2019-07-24] MEDS: FAMOTIDINE 20 MG in SYRINGE 3 ML IV SCH ×2 (11:38→20:45)
--- NOTE | 2019-07-24 15:36 | Anesthesiology Consultation ---
Date of Service July 24, 2019 Assessment & Plan (1) Encounter for pre-operative examination: Chart Review Chart Review: Acceptable Risk for Surgery and Patient NOT seen in Pre Admission Testing Consults Requested none ASA ASA3 Proposed Anesthesia Anesthesia Type: MAC Risk / Benefits Reviewed With: PT / POA / Parent / Guardian, Accepts Plan and Informed Consent Obtained Additional Notes given 1 PRBCs for hgb of 6.7 earlier today History Surgery Operation Date: 07/23/19 09:00 Proposed Procedures p Esophagogastroduodenoscopy Dr Reyna Orellana Operation Date: 07/24/19 08:30 Proposed Procedures p Colonoscopy Dr Reyna Orellana Height/Weight Height: 5 ft 10 in Weight: 99.6 kg Allergies Allergy/AdvReac Type Severity Reaction Status Date / Time cortisone Allergy Intermediate CORTISONE Verified 07/22/19 22:39 INJECTION ONLY - HIVES fentanyl Allergy Intermediate HIVES Verified 07/22/19 22:39 midazolam Allergy Intermediate HIVES Verified 07/22/19 22:40 propofol Allergy Intermediate HIVES Verified 07/22/19 22:40 prednisone Allergy Verified 07/22/19 09:49 Medications Home Medications Medication Instructions Recorded Confirmed Last Taken aspirin 81 mg PO QAM 05/07/19 07/22/19 06/09/19 alprazolam 0.25 mg tablet 0.25 mg PO DAILY PRN #30 tab 07/22/19 07/22/19 Unknown atorvastatin 10 mg tablet 10 mg PO QPM #90 tab 07/22/19 07/22/19 Unknown cholecalciferol (vitamin D3) 1,000 unit PO DAILY 07/22/19 07/22/19 Unknown [Vitamin D3] inulin 2 gram chewable tablet 2 g PO BID #180 tab 07/22/19 07/22/19 Unknown metformin 1,000 mg tablet 1,000 mg PO BID #180 tab 07/22/19 07/22/19 Unknown vitamin B complex tablet 1 tab PO QAM #90 tab 07/22/19 07/22/19 Unknown zinc 50 mg tablet 50 mg PO QAM #90 tab 07/22/19 07/22/19 Unknown Active Medications Generic Name Dose Route Start Last Admin Trade Name Freq PRN Reason Stop Dose Admin Famotidine 20 mg/ Syringe 5 mls @ 2.5 mls/min 07/23/19 02:00 07/24/19 11:38 IV 08/22/19 01:59 2.5 mls/min Q12 MALVIN Administration Insulin Aspart 0 units 07/24/19 07:30 07/24/19 12:39 Novolog Flexpen SC 08/23/19 07:29 Not Given Q6 MALVIN NPO Date Last Intake of Fluids: 07/24/19 Time Last Intake of Fluids: 11:00 Last Intake of Fluids Comment: sips of water Date Last Intake of Solids: 07/22/19 Time Last Intake of Solids: 17:30 Past Medical History Medical History Anemia Diabetes mellitus, type 2 NIDDM Hyperlipidemia Exercise / Class Metabolic Activity II 4-5 Yardwork/Stairs/Walk up hill Past Family History Family History Aunt Family history of diabetes mellitus Grandfather (Maternal) Family history of diabetes mellitus Past Surgical History Surgical History History of anesthesia reaction ALLERGY TO PROPOFOL, VERSED, FENTANYL - HIVES, SLOW TO WAKE W/ COLONOSCOPIES ([facility]) (PT STATES BENADRYL GIVEN PRIOR TO VITRECTOMY 06/2018 [facility] [place] AND NO COMPLICATIONS) History of cataract surgery LEFT History of colonoscopy History of eye surgery RT RETINA REPAIR History of repair of rotator cuff RT History of toe surgery LT 2ND History of tonsillectomy and adenoidectomy History of tooth extraction History of vitrectomy JUNE 2018 - [facility] - LT Pt received Benadryl with propofol during the case without having hives Past Anesthesia History No Hx of Anesthesia Complications and No Family Hx of Anesthesia Complications History of PONV No Hx of PONV and No Hx of Motion Sickness Social History Smoking Status: Former smoker tobacco type: cigarettes Smoking cigarettes per day: 20 Smoking End Date: Hx Alcohol Use: Yes Alcohol type: hard liquor alcohol intake frequency: 0-2 drinks per day Alcohol Intake Frequency Comment: 2 shots 5 days/week Hx Substance Use: No substance use type: does not use Review of Systems Patient denies active symptoms of GERD. Negative for chest pain or shortness of breath. Physical Exam Vital Signs Last Vital Signs Temp 37.1 C 07/24/19 15:25 Pulse 103 H 07/24/19 15:25 Resp 18 07/24/19 15:25 BP 191/76 H 07/24/19 15:25 Pulse Ox 96 07/24/19 15:25 Constitutional + obese ENMT Mouth: no TMJ abnormality and oral opening not small Thyromental Distance: > or= 3.5 Finger Breadths Mallampati Class: I Mouth / Teeth: 1. Missing Neck normal visual inspection; neck extension not limited Respiratory normal respiratory effort Auscultation: lungs clear to auscultation bilaterally Cardiovascular Rate/Rhythm: regular rate and regular rhythm Heart Sounds: + murmur Neurologic moves all extremities Psychiatric Orientation: alert and oriented x 3 Testing Laboratory Results 07/24/19 05:44 07/24/19 05:44 PT 11.2 Seconds (9.0-12.0) 07/22/19 22:57 INR 1.1 (0.9-1.1) 07/22/19 22:57 APTT < 20.0 Seconds (21.0-31.0) L 07/22/19 22:57 Blood Type A Positive 07/22/19 22:12 Antibody Screen NEGATIVE 07/22/19 22:12 07/24/19 07/24/19 11:53 07:17 POC Glucose 124 H 136 H
--- NOTE | 2019-07-24 15:40 | History & Physical Report ---
Date of Service July 24, 2019 History of Present Illness Chief Complaint: anemia Primary Care Provider: Tirso Browning MD for colonoscopy Allergies Allergy/AdvReac Type Severity Reaction Status Date / Time cortisone Allergy Intermediate CORTISONE Verified 07/22/19 22:39 INJECTION ONLY - HIVES fentanyl Allergy Intermediate HIVES Verified 07/22/19 22:39 midazolam Allergy Intermediate HIVES Verified 07/22/19 22:40 propofol Allergy Intermediate HIVES Verified 07/22/19 22:40 prednisone Allergy Verified 07/22/19 09:49 Home Medications Home Medications Medication Instructions Recorded Confirmed Type aspirin 81 mg PO QAM 05/07/19 07/22/19 History alprazolam 0.25 mg tablet 0.25 mg PO DAILY PRN #30 tab 07/22/19 07/22/19 Rx atorvastatin 10 mg tablet 10 mg PO QPM #90 tab 07/22/19 07/22/19 Rx cholecalciferol (vitamin D3) 1,000 unit PO DAILY 07/22/19 07/22/19 History [Vitamin D3] inulin 2 gram chewable tablet 2 g PO BID #180 tab 07/22/19 07/22/19 Rx metformin 1,000 mg tablet 1,000 mg PO BID #180 tab 07/22/19 07/22/19 Rx vitamin B complex tablet 1 tab PO QAM #90 tab 07/22/19 07/22/19 Rx zinc 50 mg tablet 50 mg PO QAM #90 tab 07/22/19 07/22/19 Rx Past Med/Surg History Medical History Anemia Diabetes mellitus, type 2 NIDDM Hyperlipidemia Surgical History History of anesthesia reaction ALLERGY TO PROPOFOL, VERSED, FENTANYL - HIVES, SLOW TO WAKE W/ COLONOSCOPIES ([facility]) (PT STATES BENADRYL GIVEN PRIOR TO VITRECTOMY 06/2018 [facility] [place] AND NO COMPLICATIONS) History of cataract surgery LEFT History of colonoscopy History of eye surgery RT RETINA REPAIR History of repair of rotator cuff RT History of toe surgery LT 2ND History of tonsillectomy and adenoidectomy History of tooth extraction History of vitrectomy JUNE 2018 - [facility] [place] - LT Pt received Benadryl with propofol during the case without having hives Family History Aunt Family history of diabetes mellitus Grandfather (Maternal) Family history of diabetes mellitus Social History Preferred Language: Yakut Communication Ability: Effective Valve Repairer Required: No Beliefs That Will Affect Care: None Current Living Situation: Spouse and Family Feels Safe at Home: Yes Smoking Status: Former smoker Tobacco Type: cigarettes ; Cigarettes Per Day: 20 ; Second Hand Exposure: No ; Hx Alcohol Use: Yes Alcohol type: hard liquor Hx Substance Use: No Physical Exam Constitutional: well developed and well nourished Respiratory: normal respiratory effort Cardiovascular: Rate/Rhythm: regular rate and regular rhythm Gastrointestinal (Abdomen): Percussion/Palpation: abdomen soft Results & Data Vital Signs (Past 12 Hours) Vital Signs Temp Pulse Pulse Resp BP BP Pulse Ox 07/24/19 15:25 37.1 C 103 H 18 191/76 H 96 07/24/19 11:47 37.2 C 84 16 170/77 H 97 07/24/19 09:33 37.0 C 95 H 132/96 95 07/24/19 09:03 36.4 C L 84 16 174/91 H 97 07/24/19 08:48 36.4 C L 94 H 16 178/85 H 99 07/24/19 08:32 37.0 C 107 H 16 179/92 H 94 07/24/19 08:00 88 07/24/19 07:10 36.8 C 83 18 155/82 H 96 Code Status & VTE Plan VTE Prophylaxis Plan VTE Prophylaxis will be ordered: Yes
[2019-07-24] MEDS ORDERED: SODIUM CHLORIDE 0.9% 1000ML 1,000 ML IV SCH (15:45)
[2019-07-24] MEDS ORDERED: LIDOCAINE HCL 2% 2 ML VIAL/AMP(20MG/ML) INFIL ONE (16:27)
[2019-07-24] MEDS ORDERED: DiphenhydrAMINE HCL 50 MG/ML VIAL ONE (16:27)
[2019-07-24] MEDS ORDERED: PROPOFOL IV EMULSION 10 MG/ML 20 ML VIAL IV ONE ×3 (16:27)
[2019-07-24] MEDS ORDERED: ONDANSETRON INJ 2 MG/ML 2 ML VIAL ONE (16:27)
--- NOTE | 2019-07-24 16:31 | GI REPORT ---
Patient Name: Zee You Procedure Date: 07/24/2019 3:47 PM Date of : 1960 Admit Type: Inpatient Age: 59 Gender: Female Attending MD: Ramsey Orellana MD Procedure: Colonoscopy Providers: Ramsey Orellana MD Referring MD: Demetrius Castro Indications: Unexplained iron deficiency anemia Medicines: Propofol total dose 450 mg IV, Ondansetron 4 mg IV, Lidocaine 80mg IV, Benadryl 25 mg IV Complications: No immediate complications. Estimated Blood Loss: Estimated blood loss was minimal. Procedure: Pre-Anesthesia Assessment: - Prior to the procedure, a History and Physical was performed, and patient medications, allergies and sensitivities were reviewed. The patient's tolerance of previous anesthesia was reviewed. - The risks and benefits of the procedure and the sedation options and risks were discussed with the patient. All questions were answered and informed consent was obtained. After I obtained informed consent, the scope was passed under direct vision. Throughout the procedure, the patient's blood pressure, pulse, and oxygen saturations were monitored continuously. The Colonoscope was introduced through the anus and advanced to the terminal ileum. The colonoscopy was technically difficult and complex due to a tortuous colon. Successful completion of the procedure was aided by applying abdominal pressure. The quality of the bowel preparation was excellent. Findings: The terminal ileum appeared normal. Many large-mouthed diverticula were found in the sigmoid colon. Bleeding internal hemorrhoids were found during endoscopy. The hemorrhoids were mild. Impression: - The examined portion of the ileum was normal. - Diverticulosis in the sigmoid colon. - Bleeding internal hemorrhoids. - No specimens collected. Recommendation: - [facility]. - Resume regular diet today. Ramsey Orellana M.D. Ramsey Orellana MD 07/24/2019 4:30:49 PM This report has been signed electronically. Note Initiated On: 07/24/2019 3:47 PM Number of Addenda: 0 I attest to the content of the Intraoperative Record and orders documented therein, exceptions below {[id number]}
--- NOTE | 2019-07-24 16:36 | Hematology/Oncology Prog Note ---
Date of Service July 24, 2019 Assessment & Plan (1) Symptomatic anemia: Ms. You was admitted with a severe microcytic anemia. Her ferritin is 3 and her iron saturation is 4.5%, consistent with iron deficiency. Her EGD was negative and she is scheduled for a colonoscopy today. She has had long-standing daily hemorrhoidal bleeding and I suspect this is the culprit. We will treat her with IV iron as an outpatient once she's ready for discharge. Her total bilirubin has bumped yesterday, from normal to 1.8. It is down a bit today at 1.7. This is sometimes seen after transfusion, particularly when the blood that is given is a little older. These transient elevations should resolve, so we should check another level tomorrow. She had no signs or symptoms of an acute hemolytic transfusion reaction and delayed hemolytic transfusion reactions don't generally happen within 24 hours. However, since she did have a blood transfusion as a child, she is theoretically at risk for a DHTR. We should check a ENRICO and LDH to be on the safe side. Subjective Ms. You was looking well this morning. She had no new or worsening symptoms overnight. She had no fevers, chills, or palpitations. Her hemoglobin dipped slightly this morning, so she got another unit of PRBCs. She is scheduled for a colonoscopy today. Review of Systems Constitutional: + fatigue; no fever and no weight loss Respiratory: + dyspnea on exertion; no cough and no hemoptysis Cardiovascular: no chest pain and no palpitations Gastrointestinal: no nausea and no blood in stools Integumentary: no rash and no change in skin color Neurologic: no dizziness and no headache(s) Hematologic / Lymphatic: no easy bleeding and no easy bruising Physical Exam Constitutional: well developed, well nourished and comfortable; no acute distress Eyes: + anicteric sclerae and EOM intact bilaterally ENMT: external ear and nose normal, oropharynx normal Respiratory: normal respiratory effort, lungs clear to auscultation Cardiovascular: RRR, no murmur, no edema Gastrointestinal (Abdomen): Inspection/Auscultation: normal bowel sounds; abdomen not distended Percussion/Palpation: abdomen soft; abdomen nontender Skin: no rashes, warm and dry Psychiatric: A+Ox3, euthymic affect Results & Data Vital Signs (Past 12 Hours) Vital Signs Temp Pulse Pulse Resp BP BP Pulse Ox 07/24/19 15:25 37.1 C 103 H 18 191/76 H 96 07/24/19 11:47 37.2 C 84 16 170/77 H 97 07/24/19 09:33 37.0 C 95 H 132/96 95 07/24/19 09:03 36.4 C L 84 16 174/91 H 97 07/24/19 08:48 36.4 C L 94 H 16 178/85 H 99 07/24/19 08:32 37.0 C 107 H 16 179/92 H 94 07/24/19 08:00 88 07/24/19 07:10 36.8 C 83 18 155/82 H 96 Laboratory Results Laboratory Tests 07/22/19 07/23/19 07/23/19 22:12 12:42 12:42 WBC Hgb Iron 25 L TIBC 549 H Ferritin 3.4 L Total Bilirubin 1.1 H 1.8 H D 07/23/19 07/24/19 07/24/19 13:11 05:44 05:44 WBC 5.57 4.68 L Hgb 7.2 L 6.7 L* Iron TIBC Ferritin Total Bilirubin 1.7 H
--- NOTE | 2019-07-24 16:50 | Progress Note ---
DATE: 07/24/2019 The patient underwent a colonoscopy today and included the terminal ileum. Prep was excellent. The patient had multiple sigmoid diverticula, but somewhat of a tortuous colon through the sigmoid. She also had some internal hemorrhoids, which were irritated during the procedure and bled a little bit. The remainder of the colon was normal. There was no obvious source for significant blood loss in her colon or terminal ileum. IMPRESSION: The patient has severe anemia with a negative EGD and colonoscopy for a bleeding source. Her stools were heme negative on arrival at the hospital. I suspect that she may have some form of hemolytic disorder especially given her large spleen. I would recommend followup with municipal clerk for further evaluation.
--- NOTE | 2019-07-24 17:14 | Anesthesiology Progress Note ---
Date of Service July 24, 2019 Anesthesia Post Procedure Vital Signs Vital Signs: Temp Pulse Pulse Resp BP BP Pulse Ox 07/24/19 17:02 96 H 18 142/78 H 94 07/24/19 16:47 98 H 16 134/77 93 07/24/19 16:32 37.1 C 98 H 16 151/61 H 94 07/24/19 15:25 37.1 C 103 H 18 191/76 H 96 07/24/19 11:47 37.2 C 84 16 170/77 H 97 07/24/19 09:33 37.0 C 95 H 132/96 95 07/24/19 09:03 36.4 C L 84 16 174/91 H 97 07/24/19 08:48 36.4 C L 94 H 16 178/85 H 99 07/24/19 08:32 37.0 C 107 H 16 179/92 H 94 07/24/19 08:00 88 07/24/19 07:10 36.8 C 83 18 155/82 H 96 07/24/19 03:37 36.5 C 91 H 18 168/91 H 96 07/23/19 23:19 36.8 C 88 18 134/62 97 07/23/19 19:31 36.8 C 90 20 166/93 H 97 Transfer of Care Handoff Completed per policy Notes Mental Status: alert / awake / arousable and participated in evaluation Nausea / Vomiting: adequately controlled Pain: adequately controlled Airway Patency, RR, SpO2: stable & adequate BP & HR: stable & adequate Hydration State: stable & adequate Anesthetic Complications: no major complications apparent and Pt Satisfied with anesthetic care
[2019-07-24 17:23] LABS: Microsomal Ab 11 IU/ML (<9); Thyroglobulin Antibodies <1 IU/ML (<OR=1)
--- NOTE | 2019-07-24 17:41 | Hospitalist Progress Note ---
Date of Service July 24, 2019 Assessment & Plan (1) Symptomatic anemia: Hemoglobin 4.6 at the outpatient lab, with repeat in the ED tonight 4.3. Microcytic; likely iron deficiency. Patient does report some bleeding from what she felt was hemorrhoids. - Received 3 units of PRBCs on 07/23, then 1 additional unit on 07/24 - GI consulted - EGD and colonscopy did not show any signs of bleeding, though she did have diverticula and some mild hemorrhoids. - Seen by hematology - Some concern for hemolytic reaction to her transfusions from yesterday. - Will get repeat hgb, LDH, and direct antiglobulin tests to check. (2) Right thyroid nodule: Noted on CT of chest. Thyroid ultrasound showed stable 3.5 cm nodule. - TSH from 07/22/2019 was 0.010, FT4 was 1.15. - FT3 on 07/23 was 4.41. - Difficult to tell whether these values are being affected by her critical anemia or this may be contributing. Few present symptoms as far as I can tell. Will need repeat in 4 weeks and endocrinology follow up. (3) Type 2 diabetes mellitus: A1c was 8.0% in 03/2019. - Hold metformin while inpatient. - Placed on Accu-Cheks before meals and at bedtime with NovoLog coverage per scale. (4) Hyperlipidemia: - Continued atorvastatin (5) Anxiety: - Continue lorazepam 0.5 mg IV every 6 hours as needed (6) DVT prophylaxis: SCDs given concern for bleeding Subjective Quite upset this morning as she's worried about her "medical safety." When asked more in depth, I believe she is upset that breakfast was accidentally brought to her, and is also upset that people are leaving the drape open when they leave her room. Review of Systems Review of Systems: All systems reviewed & are unremarkable except as noted in HPI & below Physical Exam Constitutional: WD/WN, vitals as above Eyes: EOM intact bilaterally; no conjunctival abnormality ENMT: external ear and nose normal, oropharynx normal Neck: trachea midline, no thyromegaly normal visual inspection Respiratory: normal respiratory effort, lungs clear to auscultation no respiratory distress Cardiovascular: RRR, no murmur, no edema Gastrointestinal (Abdomen): Inspection/Auscultation: abdomen normal to inspection; abdomen not distended Musculoskeletal: no cyanosis or clubbing, extremities motor strength 5/5 Skin: no rashes, warm and dry Neurologic: moves all extremities and awake Psychiatric: Orientation: alert, oriented to person and cooperative Results & Data Vital Signs (Past 12 Hours) Vital Signs Temp Pulse Pulse Resp BP BP Pulse Ox 07/24/19 17:02 96 H 18 142/78 H 94 07/24/19 16:47 98 H 16 134/77 93 07/24/19 16:32 37.1 C 98 H 16 151/61 H 94 07/24/19 15:25 37.1 C 103 H 18 191/76 H 96 07/24/19 11:47 37.2 C 84 16 170/77 H 97 07/24/19 09:33 37.0 C 95 H 132/96 95 07/24/19 09:03 36.4 C L 84 16 174/91 H 97 07/24/19 08:48 36.4 C L 94 H 16 178/85 H 99 07/24/19 08:32 37.0 C 107 H 16 179/92 H 94 07/24/19 08:00 88 07/24/19 07:10 36.8 C 83 18 155/82 H 96 PG Care Time/CCT Total # of Minutes Spent Total Time Spent with Patient: Total time spent is greater than 50% in coordina tion of care (as documented) at patient's floor/unit and/or counseling patient:
[2019-07-24 18:39] LABS: Hematocrit (blood only) 28.7 % (37-47); Hemoglobin 8.6 g/dL (12.0-16.0); Mean Corpuscular Hemoglobin 21.6 pg (25-34); Mean Corpuscular Volume 72.1 fL (80-100); Mean Platelet Volume 8.9 fL (7.4-10.4); Platelet Count 268 K/uL (130-400); RDW Coefficient of Variation 21.8 % (11.5-14.5); RDW Standard Deviation 57.6 fL (36.4-46.3); Red Blood Count 3.98 M/uL (4.2-5.4); White Blood Count 6.33 K/uL (4.8-10.8)
[2019-07-25 05:56] LABS: Hematocrit (blood only) 27.3 % (37-47); Hemoglobin 7.9 g/dL (12.0-16.0); Mean Corpuscular Hemoglobin 21.1 pg (25-34); Mean Corpuscular Hgb Conc 28.9 g/dL (32-36); Mean Platelet Volume 9.3 fL (7.4-10.4); Platelet Count 238 K/uL (130-400); RDW Coefficient of Variation 22.4 % (11.5-14.5); RDW Standard Deviation 59.4 fL (36.4-46.3); Red Blood Count 3.74 M/uL (4.2-5.4); White Blood Count 3.86 K/uL (4.8-10.8)
[2019-07-25 05:58] LABS: Basophils # (auto) 0.01 K/uL (0-0.2); Basophils % (auto) 0.3 %; Eosinophils # (auto) 0.11 K/uL (0-0.5); Eosinophils % (auto) 2.8 %; Hypochromasia Present; Immature Granulocytes # (auto) 0.02 K/uL (0.00-0.02); Immature Granulocytes % (auto) 0.5 %; Lymphocytes # (auto) 0.78 K/uL (1.2-3.4); Lymphocytes % (auto) 20.2 %; Monocytes # (auto) 0.47 K/uL (0.11-0.59); Monocytes % (auto) 12.2 %; Neutrophils # (auto) 2.47 K/uL (1.4-6.5); Ovalocytes 1+
[2019-07-25 06:04] LABS: BUN Creatinine Ratio 15.3 (10-20); Calcium 8.4 mg/dl (8.5-10.1); Est GFR (African American) 120.3; Est GFR (Non-African American) 103.8; Potassium 3.4 mmol/L (3.5-5.1)
[2019-07-25 06:07] LABS: Albumin Globulin Ratio 0.8 (0.9-2); Bilirubin,Total 1.7 mg/dl (0.2-1); Globulin 3.6 gm/dl (2.5-4.0); Total Protein 6.6 gm/dl (6.4-8.2)
[2019-07-25] MEDS: INSULIN ASPART 100 UNITS/ML 3 ML PEN SC SCH (08:49)
[2019-07-25] MEDS: FAMOTIDINE 20 MG in SYRINGE 3 ML IV SCH (08:49)
[2019-07-25] MEDS ORDERED: IRON SUCROSE 200 MG in 0.9 % SODIUM CHLORIDE 100 ML IV SCH (10:00)
--- NOTE | 2019-07-25 16:10 | Discharge Summary ---
Date of Service July 25, 2019 Admission HPI Per Admitting Provider for colonoscopy Principal Diagnosis Iron deficiency anemia Discharge Exam Constitutional WD/WN, vitals as above Eyes EOM intact bilaterally; no conjunctival abnormality ENMT external ear and nose normal, oropharynx normal Neck trachea midline, no thyromegaly normal visual inspection Respiratory normal respiratory effort, lungs clear to auscultation no respiratory distress Cardiovascular RRR, no murmur, no edema Gastrointestinal (Abdomen) Inspection/Auscultation: abdomen normal to inspection; abdomen not distended Musculoskeletal no cyanosis or clubbing, extremities motor strength 5/5 Skin no rashes, warm and dry Neurologic moves all extremities and awake Psychiatric Orientation: alert, oriented to person and cooperative Discharge Data Allergies Allergy/AdvReac Type Severity Reaction Status Date / Time cortisone Allergy Intermediate CORTISONE Verified 07/22/19 22:39 INJECTION ONLY - HIVES fentanyl Allergy Intermediate HIVES Verified 07/22/19 22:39 midazolam Allergy Intermediate HIVES Verified 07/22/19 22:40 propofol Allergy Intermediate HIVES Verified 07/22/19 22:40 prednisone Allergy Verified 07/22/19 09:49 Consultations 07/22/19 22:22 ED Decision to Admit Stat 07/23/19 00:55 Consult Case Management - Discharge Planning Routine Consult Gastroenterology Routine Consult Hematology Routine Procedures Performed Operation Date: 07/23/19 09:00 Actual Procedures p Esophagogastroduodenoscopy - Ramsey Orellana Operation Date: 07/24/19 08:30 Actual Procedures p Colonoscopy - Ramsey Orellana Ordered Studies 07/22/19 22:59 US thyroid Urgent 07/22/19 23:04 CT abd pelvis wo con Urgent Hospital Course (1) Symptomatic anemia: Hemoglobin 4.6 at the outpatient lab, with repeat in the ED tonight 4.3. Microcytic; likely iron deficiency. Patient does report some bleeding from what she felt was hemorrhoids. - Received 3 units of PRBCs on 07/23, then 1 additional unit on 07/24 - GI consulted - EGD and colonscopy did not show any signs of bleeding, though she did have diverticula and some mild hemorrhoids. - Seen by hematology - Some concern for hemolytic reaction to her transfusions from yesterday; however, repeat hgb, LDH, and direct antiglobulin tests were all normal. - On 07/25, her hgb was down to 7.9. She felt fine. She declined any IV iron and requested to be discharged from the hospital. I offered follow up with Dr. Jorgensen, but she said she would like to pursue a second opinion. (2) Right thyroid nodule: Noted on CT of chest. Thyroid ultrasound showed stable 3.5 cm nodule. - TSH from 07/22/2019 was 0.010, FT4 was 1.15. - FT3 on 07/23 was 4.41. 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 - Difficult to tell whether these values are being affected by her critical anemia or this may be contributing. Few present symptoms as far as I can tell. Will need repeat in 4 weeks and endocrinology follow up. (3) Type 2 diabetes mellitus: A1c was 8.0% in 03/2019. - Held metformin while inpatient; continue as outpatient. (4) Hyperlipidemia: - Continued atorvastatin (5) Anxiety: - Was on lorazepam 0.5 mg IV every 6 hours as needed (6) DVT prophylaxis: SCDs given concern for bleeding Total Time Total Time Spent Total Time Spent (In Minutes): 45 Total Time Includes: Examination of the Patient and Communication With Other Providers Discharge Plan Discharge Items Patient Disposition: Home - Self-Care Reason For Visit: ANEMIC,ABNORMAL LABS Discharge Diagnosis: Iron deficiency anemia, possibly from poor absorption vs. slow GI bleed from hemorrhoids. Discharge Goals: Decrease discomfort and Improve disease control Activity: Resume your previous activity Non-emergency contact: Primary Care Provider and Oncologist Call non-emergency contact if: your symptoms worsen Follow-up/Referrals: Tirso Browning MD [Primary Care Provider] - 07/29/19 9:00 am (Please, follow up at Dr. Browning's office with his associate, Isabella PECK, on SaturdayJuly 29 at 9:00 am. *If you need to change this appointment, call their office at [phone].) Ramsey Orellana [Physician] - 09/21/19 10:20 am (Please, follow up at [facility] with Dr. Orellana on SaturdaySeptember 21 at 10:20 am. *The office is located at [address] [place] [address]. This is next to [facility]. If you need to change this appointment, call the office at [phone].) Vladimir Jorgensen [Physician] - (Please, follow up with Dr. Vladimir Jorgensen regarding treatment for anemia. *A nurse from his office will call you with the appointment information. The office is located in the rear of this hospital building. You will park behind the building in [address] and enter via [facility]. If you have any questions, call the office at [phone].) Diet: Regular Addtl Provider Instructions: Ms. You, You were admitted to the hospital for anemia with a low hemoglobin. We gave you a total of 4 units of blood to bring your hemoglobin up to 7.9. You got a colonoscopy and EGD (scope of the stomach) that just showed some mild hemorrhoids and non-bleeding diverticula (small outpouchings of your large intestine). The senior consulting manager saw you and felt this was iron deficiency anemia from a slow, but long-term bleeding from hemorrhoids. We offered you IV iron to help build your iron stores; however, you declined and would like to pursue a second opinion. This is fine. If you would like to pursue IV iron therapy with our hospital, please follow up with Dr. Jorgesnen as an outpatient. Please take an iron supplement every other day. The supplement can sometimes cause stomach upset, constipation, or even darker stools. Taking it more than every other day has minimal benefits, but can worsen the side effects, so taking more than that probably won't help. You can also eat iron-rich foods to help increase your iron stores. Please follow up with Dr. Browning next week for a repeat check of your hemoglobin levels. You may continue to have lower hemoglobin because your iron stores are still very low. Please return to the hospital if you have any fainting or passing out episodes, any lightheadedness, dizziness, or other concerning symptoms. Prescriptions: New ferrous sulfate [iron] 325 mg (65 mg iron) tablet 325 mg PO Q OTHER DAY Qty: 30 RF: 0 Continued atorvastatin 10 mg tablet 10 mg PO QPM Qty: 90 RF: 3 Fiber Gummies 2 gram tablet,chewable 2 g PO BID Qty: 180 RF: 3 metformin 1,000 mg tablet 1,000 mg PO BID Qty: 180 RF: 3 vitamin B complex tablet 1 tab PO QAM Qty: 90 RF: 3 zinc 50 mg tablet 50 mg PO QAM Qty: 90 RF: 3 alprazolam 0.25 mg tablet 0.25 mg PO DAILY PRN (Reason: anxiety) Qty: 30 RF: 0 aspirin 81 mg Tablet,Delayed Release (Dr/Ec) 81 mg PO QAM RF: 0 cholecalciferol (vitamin D3) [Vitamin D3] 1,000 unit (25 mcg) Tablet 1,000 unit PO DAILY RF: 0 Stand-Alone Forms: [facility] Discharge Orders: Discharge Order (Routine); Ordered 07/25/19 Ordered By: Alon Castro Admission Data Admit Date/Time: 07/22/19 22:56 Attending Provider: Alon Castro Admit Provider: Lobito Martínez Primary Care Provider: Tirso Browning Other Providers: Alon Castro ; Lobito Martínez ; Ramsey Orellana ; Taco Desouza V Service: Medical Other Interventions: Discharge Summary Assessment (RN) Last Done: 07/25/19 09:25 DC Date/Time DO NOT enter until pt leaves facility: 07/25/19 10:07
== END 2019-07-25 10:07 | disposition home or self-care (01) | DRG 812 ==
LOC: ED 21:31 → 2E 22:56 → SUATTDRO 22:56 → 2E 23:44 → 4W 07-24 18:45